=== PATIENT | female | born 1945 | race Caucasian/White ===

== ENCOUNTER 2020-10-07 07:03 | Day surgery (SDC) | payer OTHER, SELFPAY ==
--- NOTE | 2020-10-05 11:38 | HP_ITS ---
DATE OF SERVICE: 10/07/2020 PROPOSED DATE OF SERVICE: October 07. 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 She has a personal and family history of colon polyps and last underwent colonoscopy in October of 2013. At that time, she had a small tubular adenoma that was removed from the cecum. There was also a 6 mm hyperplastic polyp in the sigmoid. Small internal hemorrhoids were noted. She has no complaints. PAST MEDICAL HISTORY: Drug-induced hepatitis (erythromycin ethylsuccinate), uterine fibroid, mild depression, osteoporosis. PAST SURGICAL HISTORY: Includes dental surgery. FAMILY HISTORY: Her father had polyps. SOCIAL HISTORY: There is no current tobacco, alcohol, or substance abuse. MEDICATIONS: Her current medication list is updated in the short-stay medication update. ALLERGIES: PENICILLIN AND ERYTHROMYCIN ETHYLSUCCINATE. REVIEW OF SYSTEMS: SKIN: No pruritus. HEENT: Negative. CARDIOPULMONARY: No shortness of breath or chest pain. GASTROINTESTINAL: As above. GENITOURINARY: Negative. NEUROPSYCHIATRIC: Negative. PHYSICAL EXAMINATION: GENERAL: Shows a pleasant female, in no acute distress. VITAL SIGNS: Reviewed in the electronic medical record and are stable. SKIN: Anicteric. HEENT: Shows no scleral icterus. NECK: Without lymphadenopathy or thyromegaly. LUNGS: Clear. HEART: Regular rate and rhythm. S1, S2. No murmur. ABDOMEN: Soft without focal masses or tenderness. Bowel sounds are present. No organomegaly is noted. EXTREMITIES: Without edema. IMPRESSION: Colon cancer screening. PLAN: Colonoscopy. She understands risks and benefits and agrees to proceed. MD DENISE Mcghee/AL / [phone]
--- NOTE | 2020-10-06 09:40 | HO.ANESPROP2 ---
Documented by User: Svitlana Husain 10/06/20 09:42 HPI - Anesthesia Eval Consult details Narrative: 74yo F for Colonoscopy PMFSH Past Medical History Medical History Drug-induced hepatitis Mild depression Osteoarthritis Osteoporosis Systolic murmur Uterine fibroid Functional capacity: independent ambulation Family History Family History Father HTN (hypertension) Coronary artery disease Mother HTN (hypertension) Cardiomyopathy Smoker Depression Surgical History Surgical History H/O colonoscopy History of tooth extraction Hx of meniscectomy of right knee Social History Social History Alcohol intake: current Alcohol intake frequency: holidays/special occasions only Smoking Status: Never smoker Advance Directives: No Meds Allergies Allergy/AdvReac Type Severity Reaction Status Date / Time silvia Allergy Severe DIFF Unverified 10/06/20 16:46 BREATHING - TRACHEAL EDEMA penicillin G Allergy Unknown rash, hives Verified 10/06/20 16:46 penicillin V Allergy Unknown rash, hives Verified 10/06/20 16:46 Penicillins [PENICILLINS] Allergy Unknown HIVES Verified 10/06/20 16:46 erythromycin base AdvReac Unknown DRUG Verified 10/06/20 16:46 [ERYTHROMYCIN BASE] RELATED HEPATITIS Poison Keturah Scrub Allergy Unknown Unknown Uncoded 10/06/20 16:46 Poison [place] Wash Allergy Unknown Unknown Uncoded 10/06/20 16:46 Home Medications Medication Instructions Recorded Confirmed Type escitalopram oxalate [Lexapro] 10 mg PO DAILY 10/06/20 10/06/20 History ibuprofen 200 mg tablet 400 mg PO Q6H 10/06/20 10/06/20 History lorazepam 1 tab PO BEDTIME 10/06/20 10/06/20 History lorazepam 1 mg tablet 1 mg PO DAILY PRN 10/06/20 10/06/20 History Exam Exam Date and Time: October 06, 2020 0940 Assessment and Plan Assessment Anesthesia Assessment: Chart Reviewed Documented by User: Florina Boyer 10/07/20 07:47 [facility] Past Medical History Medical History Drug-induced hepatitis Mild depression Osteoarthritis Osteoporosis Systolic murmur Uterine fibroid Family History Family History Father HTN (hypertension) Coronary artery disease Mother HTN (hypertension) Cardiomyopathy Smoker Depression Family history of problems with anesthesia: No Surgical History Surgical History H/O colonoscopy History of tooth extraction Hx of meniscectomy of right knee History of Problems with Anesthesia: No Social History Social History Alcohol intake: current Alcohol intake frequency: holidays/special occasions only Smoking Status: Never smoker Advance Directives: No Meds Allergies Allergy/AdvReac Type Severity Reaction Status Date / Time silvia Allergy Severe DIFF Unverified 10/06/20 16:46 BREATHING - TRACHEAL EDEMA penicillin G Allergy Unknown rash, hives Verified 10/06/20 16:46 penicillin V Allergy Unknown rash, hives Verified 10/06/20 16:46 Penicillins [PENICILLINS] Allergy Unknown HIVES Verified 10/06/20 16:46 erythromycin base AdvReac Unknown DRUG Verified 10/06/20 16:46 [ERYTHROMYCIN BASE] RELATED HEPATITIS Poison [place]ur[place] Scrub Allergy Unknown Unknown Uncoded 10/06/20 16:46 Poison [place] Wash Allergy Unknown Unknown Uncoded 10/06/20 16:46 Home Medications Medication Instructions Recorded Confirmed Type escitalopram oxalate [Lexapro] 10 mg PO DAILY 10/06/20 10/06/20 History ibuprofen 200 mg tablet 400 mg PO Q6H 10/06/20 10/06/20 History lorazepam 1 tab PO BEDTIME 10/06/20 10/06/20 History lorazepam 1 mg tablet 1 mg PO DAILY PRN 10/06/20 10/06/20 History Exam Height,Weight and Vital Signs: Vital Signs Temp Pulse Resp BP Pulse Ox 10/07/20 07:15 96.6 F L 78 18 147/83 H 97 Airway Mallampati Class: II TM Dist: >3cm Neck ROM: Full Heart: RRR+ systolic murmur Lungs: CTAB Assessment and Plan Assessment Anesthesia Assessment: Anesthesia Plan Discussed and Chart Reviewed Final Anesthetic Review NPO: Yes ASA Class: II Final Preanesthetic Review: No Changes in Pt Med Stat, Meds/Allgs Chart Reviewed, Consent Obtained/Reviewed and Anes Risks/Benef Reviewed Patient Risk: Low Procedure Risk: Low Anesthetic Plan Anesthetic Plan: MAC:
[2020-10-07 07:15] VITALS: BP 147/83; PULSE 78; RESP 18; TEMP 35.9; O2SAT 97; BMI 29.2
[2020-10-07 07:32] VITALS: BMI 64.5
[2020-10-07] MEDS: Sodium Phosphate,Mono-Dibasic 133 ML ENEMA PR (07:45)
--- NOTE | 2020-10-07 07:45 | PC.NURSE ---
PER NIESHA MEANS AND ORTEGA IN PATIENT REGISTRATION OK TO ADD LAB ORDER FROM [facility] TO THIS VISIT. ORDER PUT IN BY THIS RN FOR CBC, LIPID PROFILE, TSH, AND CHEM PROFILE. LAB CALLED TO COME DRAW PATIENT AT BEDSIDE.
--- NOTE | 2020-10-07 07:59 | PC.NURSE ---
FLEETS GIVEN RESULTS;YELLOW LIQUID
[2020-10-07] MEDS: Lactated Ringers 1,000 ML 100 ML IVCONT (08:08)
--- NOTE | 2020-10-07 08:09 | MHC.SHP ---
Pre-Procedural Eval Section A The patient is an INPATIENT: No Changes since office visit: No Cold of Flu in the past 2 weeks, No New Medical Problems, No Changes in Medication and No Patient answered all questions The History & Physical has been completed within 30 days and I have reviewed it.: Yes Section B Chief Complaint: HX OF COLON POLYPS,SCREENING Details of Present Illness: screening Relevant Family History (Specify if Yes): Yes Relevant Social History: None Present Medications: see Short Stay Collaborative assessment Medical History: No relevant PMH History of Previous Operations: No relevant previous surgery Allergies: Allergies Allergy/AdvReac Type Severity Reaction Status Date / Time silvia Allergy Severe DIFF Unverified 10/06/20 16:46 BREATHING - TRACHEAL EDEMA penicillin G Allergy Unknown rash, hives Verified 10/06/20 16:46 penicillin V Allergy Unknown rash, hives Verified 10/06/20 16:46 Penicillins [PENICILLINS] Allergy Unknown HIVES Verified 10/06/20 16:46 erythromycin base AdvReac Unknown DRUG Verified 10/06/20 16:46 [ERYTHROMYCIN BASE] RELATED HEPATITIS Poison Keturah Scrub Allergy Unknown Unknown Uncoded 10/06/20 16:46 Poison [place] Wash Allergy Unknown Unknown Uncoded 10/06/20 16:46 Review of Systems Sugical H&P ROS: Negative: Constitution, Cardiovascular, Respiratory, Neurological, Psychiatric, Hem-Onc, Allergic/Immunologic, Gastrointestinal, Genitourinary, Musculoskeletal, Integumentary, Endocrine and Eyes/Ears/Nose/Throat Exam Surgical H&P Exam: Normal: HEENT, Normal: Heart, Normal: Lungs, Normal: Extremities, Normal: Abdomen, Normal: Skin and Normal: Neurological Plan Diagnosis/Plan: Unchanged Patient has been examined and remains a candidate for the planned procedure
[2020-10-07 08:11] LABS: MANUAL DIFF FLAG NO
[2020-10-07 08:18] LABS: Basophils Percent Auto 0.7 % (0-2); Eosinophils Absolute Auto 0.1 X10*3/uL (0.0-0.4); Eosinophils Percent Auto 1.8 % (0-4); Hematocrit 41.7 % (37-47); Hemoglobin 13.7 g/dl (12.0-16.0); Imm Gran Abs Auto 0.01 X10*3/uL (0.00-0.03); Imm Gran Pct Auto 0.2 % (0.0-0.4); Lymphocytes Absolute Auto 1.5 X10*3/uL (1.2-4.9); Lymphocytes Percent Auto 27.1 % (20-40); Mean Corpuscular HGB Conc 32.9 g/dl (31.0-35.0); Mean Corpuscular Hemoglobin 29.7 pg (27.0-33.0); Mean Corpuscular Volume 90.5 fL (80-98); Mean Platelet Volume 10.7 fL (9.4-12.3); Monocytes Absolute Auto 0.5 X10*3/uL (0.1-1.2); Monocytes Percent Auto 9.6 % (2-11); Neutrophils Absolute Auto 3.4 X10*3/uL (2.0-8.3); Neutrophils Percent Auto 60.6 % (45-73); Platelet Count 190 X10*3/uL (160-400); Red Blood Count 4.61 X10*6/uL (4.20-5.50); Red Cell Distribution Width 12.8 % (11.0-16.0); White Blood Count 5.6 X10*3/uL (4.8-10.8)
[2020-10-07 08:45] LABS: Alanine Aminotransferase 16 U/L (0-31); Albumin Level 3.8 g/dL (3.5-5.0); Alkaline Phosphatase 64 U/L (39-117); Anion Gap 11 (12-20); Aspartate Amino Transferase 20 U/L (5-31); Bilirubin Total 0.5 mg/dL (0.0-1.0); Blood Urea Nitrogen 7 mg/dL (9-16); Calcium 8.3 mg/dL (8.4-10.2); Carbon Dioxide 31 mmol/L (22-29); Chloride 105 mmol/L (96-108); Cholesterol 190 mg/dL; Creatinine Clr Calc Pharmacy 94.1; Estimated Glomerular Filt Rate > 60; Glucose Fasting 98 mg/dL (60-99); HDL Cholesterol 49 mg/dL; LDL Cholesterol Calculated 125 mg/dl; Potassium 3.6 mmol/l (3.3-5.1); Sodium 143 mmol/L (135-145); Total Protein 6.5 g/dL (6.5-8.0); Triglycerides 82 mg/dL
--- NOTE | 2020-10-07 08:53 | PM.OP ---
Brief Operative Note Date of procedure: 10/07/20 Post-op diagnosis: same (colon polyps) Procedure: colonosocpy Surgeon: Alfredo Cole Anesthesia: MAC Estimated blood loss (mL): 5 Pathology: other (polyps r colon, splenic flexure, desc, 30 cm) Condition: stable Disposition: PACU
[2020-10-07 08:56] VITALS: BP 122/64; PULSE 63; RESP 16; TEMP 36.3; O2SAT 98
[2020-10-07 09:06] LABS: Thyroid Stimulating Hormone 1.61 mIU/mL (0.32-4.0)
--- NOTE | 2020-10-07 09:10 | OP_ITS ---
SURGEON: Alfredo Cole MD INDICATIONS: Colon cancer screening and prior history of adenomatous colon polyps. PREOPERATIVE DIAGNOSIS: POSTOPERATIVE DIAGNOSIS: PROCEDURE PERFORMED: Colonoscopy to the terminal ileum with biopsy and snare polypectomy. ESTIMATED BLOOD LOSS: COMPLICATIONS: ANESTHESIA: ASSISTANTS: SPECIMENS: MEDICATIONS: Monitored anesthesia care. DESCRIPTION OF PROCEDURE: History and physical performed. The risks and benefits of the procedure were explained to the patient. Informed consent was obtained. The patient was placed in a left lateral decubitus position. A digital rectal exam was performed and was found to be normal. The Olympus pediatric video colonoscope was introduced into the rectum and advanced to the cecum without difficulty. The cecum was identified by transillumination, palpation, and identification of ileocecal valve. Examination was performed and the scope was removed. She tolerated the procedure well and was taken to recovery area in stable condition. FINDINGS: The terminal ileum was normal. The visualized colonic mucosa was normal. The quality of the prep was good. Multiple colonic polyps were present. Two in the right colon were removed with a snare and recovered via suction. One at the splenic flexure was also snared. The 3rd polyp at the descending colon and was removed with biopsy forceps and a polyp in the sigmoid at 30 cm was removed with a snare. All polyps measured less than 10 mm. No other polyps were identified. Retroflexed examination showed some small internal hemorrhoids and skin tags. IMPRESSION: Colon polyps. RECOMMENDATION: Follow up the biopsy results. MD DENISE Mcghee/AL / [id number]
[2020-10-07 09:11] VITALS: BP 132/107; PULSE 59; RESP 16; O2SAT 98
[2020-10-07 09:21] VITALS: BP 148/67; PULSE 56; RESP 16; TEMP 36.1; O2SAT 98
== END 2020-10-07 10:15 | disposition home or self-care (01) ==
PROVIDERS: Nurse Practitioner Family; PCP Internal Medicine; Visit Provider Internal Medicine Gastroenterology
PROC: 0DJD8ZZ Inspection of Lower Intestinal Tract, Via Natural or Artificial Opening Endoscopic (ICD-10-PCS; CPT 45378; principal; 2020-10-07 08:10)
DX: Z12.11 Encounter for screening for malignant neoplasm of colon (principal); Z86.010 Personal history of colon polyps; Z83.71 Family history of colonic polyps; D12.2 Benign neoplasm of ascending colon; D12.3 Benign neoplasm of transverse colon; D12.4 Benign neoplasm of descending colon; D12.5 Benign neoplasm of sigmoid colon; M81.0 Age-related osteoporosis without current pathological fracture; F32.9 Major depressive disorder, single episode, unspecified; Z79.899 Other long term (current) drug therapy; Z79.1 Long term (current) use of non-steroidal anti-inflammatories (NSAID); Z88.0 Allergy status to penicillin; Z88.1 Allergy status to other antibiotic agents
CPT/HCPCS: 45385; 45380; 36415; 80053; 80061; 84443; 85025; 88305; J2250

== ENCOUNTER → 2020-12-14 08:22 | Outpatient (REF) | payer OTHER, SELFPAY ==
--- NOTE | 2020-12-14 08:30 | CA_ITS ---
Transthoracic Echocardiogram Patient (Last, First, Middle): Chanelle Núñez, Gender: Female Date of : 1945 Age: 75 Procedure Date: 12/14/2020 Procedure Type: Transthoracic Echocardiogram Location: OP Height: 154.94 cm Weight: 70.76 kg BSA: 1.70 m2 Heart Rate: bpm BP: 146 / 67 mmHg Milieu Counselor: RIDDHI Referring MD: Carlos Lr [facility] Veterinary Poultry Inspector: Efraín Bianchi MD Symptoms: R01.1 - Cardiac murmur, unspecified Study Quality: Fair ECG Rhythm: Sinus Conclusions: - 1. Normal LV systolic function with grade 1 diastolic dysfunction 2. Mild fibrocalcific aortic valve changes 3. Normal cardiac valvular Doppler 4. Normal RV systolic pressure 5. No pericardial effusion Findings Left Ventricle Normal left ventricular size, thickness, and systolic function. The visually estimated ejection fraction is between 60-65%. Spectral Doppler is indicative of an impaired relaxation filling pattern. E/E prime ratio is <8, consistent with normal filling pressures. Evidence suggests grade I (mild) diastolic dysfunction. Right Ventricle Normal right ventricular cavity size and systolic function. Atria The left atrium is likely dilated. There is no evidence of interatrial shunt. The right atrium is normal in size. Aortic Valve There is mild calcification of the aortic valve. There is no aortic valve stenosis. There is no aortic valve regurgitation. Mitral Valve There is mild anterior mitral leaflet thickening. There is mild mitral annular calcification. There is trace mitral valve regurgitation. There is no mitral valve stenosis. Pulmonic Valve The pulmonic valve was not well visualized. Tricuspid Valve Normal tricuspid valve structure. There is mild tricuspid valve regurgitation. The right ventricular systolic pressure is normal. The right ventricular systolic pressure is 21 mmHg. Normal right atrial pressure. There is no evidence of pulmonary hypertension. Great Vessels All visible segments of the aorta are normal in size. The pulmonary artery was not well visualized. Venous The inferior vena cava is normal in size and collapses greater than 50% with inspiration. Pericardium/Pleural There is no evidence of pericardial effusion. Prior Study Comparison No prior study available for comparison. Measurements 2D Linear Measurements IVSd: 0.96 0.6-0.9/0.6-1.0 cm LVIDd: 4.73 3.9-5.3/4.2-5.9 cm LVIDd Index: 2.78 2.4-3.2/2.2-3.1 cm/m2 LVIDs: 3.06 2.0-3.6 cm LVPWd: 0.85 0.7-1.1 cm Ao Root: 3.10 2.1-3.5 cm LA Diam: 3.60 2.7-3.8/3.0-4.0 cm LAIDs Index: 2.12 1.5-2.3 cm/m2 LV Mass: 180.19 67-162/88-224 g LV Mass Index: 106.00 43-95/49-115 g/m2 LVOT Diam: 1.90 3.0+(-)1.3 cm 2D Systolic Function EF 4C: 68.00 >55% EF 2C: 40.40 >55% EF BiP: 58.70 >55% Mitral Valve MV Pk E: 0.68 MV PK A: 1.15 MV Decel Time: 201.00 E/A: 0.60 E'Lateral: 8.61 E'Medial: 5.61 E/E' Med: 12.20 E/E' Lat: 7.90 PHT: 59.00 MVA PHT: 3.73 Decel [place]: 3.41 Aortic Valve AoV Pk Jovan: 1.52 AoV Pk Grad: 9.00 LVOT LVOT Pk Jovan: 1.40 LVOT Mn Jovan: 0.99 LVOT VTI: 0.32 LVOT Pk Grad: 8.00 LVOT Mn Grad: 4.00 LVOT Diam: 1.90 LVOT Area: 2.84 Diastolic Function MV Pk E: 0.68 MV Pk A: 1.15 E/A: 0.60 E'Medial: 5.61 E/E' Med: 12.20 E' Laterial: 8.61 E/E' Lat: 7.90 Tricuspid Valve TR Pk Jovan: 2.12 TR Pk Grad: 18.00 RA Press: 3.00 RVSP: 21.00 Great Vessels Aorta Ao Root-2D: 3.10 2.0-3.7 cm Ao Asc: 3.60 2.1-3.4 cm Updated in Other Vendor System with Status of Final Efraín Bianchi MD electronically signed on 12/14/2020 3:53:03 PM with status of Final
== END ==
LOC: HO.CARD 08:22
PROVIDERS: Visit Provider Nurse Practitioner Family
DX: R01.1 Cardiac murmur, unspecified (principal)
CPT/HCPCS: 93306; Q9957

== ENCOUNTER 2021-07-10 10:37 | Outpatient (REF) | payer OTHER, SELFPAY ==
[2021-07-10 14:09] LABS: MANUAL DIFF FLAG NO
[2021-07-10 14:14] LABS: Basophils Percent Auto 0.5 % (0-2); Eosinophils Absolute Auto 0.1 X10*3/uL (0.0-0.4); Eosinophils Percent Auto 1.4 % (0-4); Glucose Urine UA NEG (NEG); Hematocrit 40.8 % (37-47); Hemoglobin 13.5 g/dl (12.0-16.0); Imm Gran Abs Auto 0.02 X10*3/uL (0.00-0.03); Imm Gran Pct Auto 0.3 % (0.0-0.4); Leukocyte Esterase Urine TRACE (NEG); Lymphocytes Absolute Auto 1.8 X10*3/uL (1.2-4.9); Lymphocytes Percent Auto 29.1 % (20-40); Mean Corpuscular HGB Conc 33.1 g/dl (31.0-35.0); Mean Corpuscular Volume 90.7 fL (80-98); Mean Platelet Volume 11.2 fL (9.4-12.3); Monocytes Absolute Auto 0.6 X10*3/uL (0.1-1.2); Monocytes Percent Auto 9.3 % (2-11); Neutrophils Absolute Auto 3.7 X10*3/uL (2.0-8.3); Neutrophils Percent Auto 59.4 % (45-73); Nitrite Urine NEG (NEG); Platelet Count 210 X10*3/uL (160-400); Red Cell Distribution Width 12.9 % (11.0-16.0); Specific Gravity - Urine <= 1.005 (1.005-1.025); UACC Culture Trigger YES; Urine Blood NEG (NEG); Urine Ketones NEG (NEG); Urine Protein NEG (NEG-TRACE); White Blood Count 6.2 X10*3/uL (4.8-10.8)
[2021-07-10 14:17] LABS: Appearance Urine HAZY; Color Urine YELLOW
[2021-07-10 14:25] LABS: RBC Urine 0-2 /HPF (0); Squamous Epithelial Cell Urine 1+ /LPF; WBC Urine 0-2 /HPF (0-4)
[2021-07-10 14:37] LABS: Alanine Aminotransferase 16 U/L (0-31); Alkaline Phosphatase 62 U/L (39-117); Anion Gap 13 (12-20); Aspartate Amino Transferase 18 U/L (5-31); Bilirubin Total 0.3 mg/dL (0.0-1.0); Blood Urea Nitrogen 11 mg/dL (9-16); Calcium 8.8 mg/dL (8.4-10.2); Carbon Dioxide 27 mmol/L (22-29); Chloride 104 mmol/L (96-108); Cholesterol 177 mg/dL; Estimated Glomerular Filt Rate > 60; Glucose Fasting 100 mg/dL (60-99); HDL Cholesterol 52 mg/dL; Iron 111 mcg/dL (30-160); LDL Cholesterol Calculated 110 mg/dl; Percent Iron Saturation 38 % (15-50); Potassium 3.8 mmol/L (3.3-5.1); Sodium 140 mmol/L (135-145); Total Iron Binding Capacity 289 mcg/dL (228-428); Total Protein 6.5 g/dL (6.5-8.0); Triglycerides 78 mg/dL; Unsaturated Iron Binding 178 ug/dL
[2021-07-10 14:58] LABS: Ferritin 164 ng/mL (10-250); TSH reflex Free T4 0.77 uIU/mL (0.32-4.0); Vitamin D 25-OH Total 32.3 ng/mL (>30)
[2021-07-10 16:25] LABS: Folate > 20.0 ng/mL (> or = 4.0); Vitamin B12 615 pg/mL (200-900)
== END 2021-07-10 10:38 | disposition home or self-care (01) ==
LOC: HO.HMGCLDS 10:37
PROVIDERS: PCP Nurse Practitioner Family; Visit Provider Nurse Practitioner Family
DX: Z00.00 Encounter for general adult medical examination without abnormal findings (principal); M81.0 Age-related osteoporosis without current pathological fracture; R53.83 Other fatigue
CPT/HCPCS: 36415; 80053; 80061; 81001; 82306; 82607; 82728; 82746; 83540; 84443; 85025; 87086

== ENCOUNTER 2021-07-19 10:26 | Outpatient (REF) | payer OTHER, MEDICARE, SELFPAY ==
--- NOTE | 2021-07-19 11:09 | MHC.AU.ANR ---
Adult Audiological Evaluation Date of Visit: 07/19/21 Reason for Appointment: Audiological re-evaluation to monitor the status of Wilton's hearing loss. She was previously diagnosed with a mild to moderate sensorineural hearing loss and was considered a borderline candidate for amplification. She notes a decrease in her hearing ability when in the presence of background noise and when the speaker is at a distance or in another room. She feels she hears well at work and when speaking with someone face to face. Change in medical history includes hypertension and transitioning mental health medications. Does patient feel they have a hearing loss?: Yes If Yes, Which Ear?: Both Ears Has hearing been tested previously?: Yes Previous Hearing Test [place] [facility] Mild to moderate sensorineural hearing loss bilaterally. Medical History: Medical History: High Blood Pressure Allergies: [place], penicillin, erythromycin, poison inessa scrub/wash Medication List: Amlodipine, Lexapro, Ativan Otoscopy: Right Ear: Unremarkable Left Ear: Unremarkable Tympanometry: Tympanometry performed due to: To assess integrity of the middle ear system Right Ear: Normal Middle Ear System (Type A) Left Ear: Normal Middle Ear System (Type A) Hearing Evaluation: Transducer(s) Used: Insert Earphones, Bone Conduction Method: Conventional Audiometry Stimuli Used: Pure Tones Right Ear: Description of Hearing: Mild to moderate sensorineural hearing loss from 250-8000 Hz. Hearing is 10 dBHL worse than the left at 1000 Hz and 20 dBHL worse than the left at 2000 Hz. Left Ear: Description of Hearing: Mild to moderate sensorineural hearing loss from 250-8000 Hz. Speech Recognition Threshold (SRT): Method Used: Monitored Live Voice Stimuli Used: Spondee Words Right Ear: 35 dBHL Left Ear: 25 dBHL Word Discrimination: Method: Recorded Lists Word Lists Used: NU-6 Right Ear: 96% at 75 dBHL Left Ear: 96% at 65 dBHL Comparison: Compared to the most recent evaluation: 15 dBHL decrease in hearing in the right ear at 2000 Hz. All other thresholds remain stable bilaterally. Recommendations: Discussed hearing aid candidacy. Recommended trial with hearing aids if Dr. Núñez finds that her hearing loss is causing significant communication difficulties. Dr. úNñez will consider hearing aids and she was welcomed to return to further discuss hearing aid options and technology. Recommend a hearing re-evaluation in one year to monitor the status of her hearing loss. Diagnosis: Primary Diagnosis: H90.3 Bilateral Sensorineural Hearing Loss Services Performed: Services Performed: Comprehensive Audiological Evaluation (CPT 55041) Tympanometry (CPT 44987) Signature: Provider: Alec Peñaloza, CCC-A
== END 2021-07-19 10:27 | disposition home or self-care (01) ==
LOC: HO.SH 10:26
PROVIDERS: Visit Provider Nurse Practitioner Family
DX: H90.3 Sensorineural hearing loss, bilateral (principal)
CPT/HCPCS: 92557; 92567

== ENCOUNTER 2021-08-14 10:30 | Outpatient (REF) | payer SELFPAY ==
--- NOTE | 2021-08-14 13:16 | MHC.AU.HAS ---
Hearing Aid Evaluation Date of Visit: 08/14/21 Historical Information: Description of Hearing: Mild to moderate sensorineural hearing loss bilaterally, right ear hearing worse than left. Current personal amplification information, if applicable: None Summary: Dr. Aguillonris was seen today to discuss hearing aids. She notes that she primarily has noticed difficulty hearing aid home, which has caused conflict with her family. She is interested in trying a pair of hearing aids. Discussed hearing aid styles and technologies today. Interested in rechargeable MARILYNN aids. She is interested in entry level java developer technology as she will be retiring and isn't in background noise too often. Hearing Aid Prescription: Based on the individual?s shared listening needs, communication environments, dexterity, desire for connectivity, and personal preferences, the following prescription for amplification has been made: Right ear: Manager Audit: Phonak Model: Audeo P50-R Battery Size: Rechargeable Color: P1 - Sand beige Trouble Locater: Size 1 M Type of Dome: Open Left ear: Left ear prescription to be same as Right Hearing Aid above: Manager Audit: Phonak Model: Audeo P50-R Battery Size: Rechargeable Color: P1 - Sand beige Trouble Locater: Size 1 M Type of Dome: Open Plan of Care: Patient wishes to purchase hearing aids as prescribed Action Taken/Action Needed: Medical Clearance to be requested from PCP/ENT. Hearing Instrument Fitting to be scheduled when materials arrive. Hearing aids ordered today. Paid $350 deposit. Primary Diagnosis: H90.3 Bilateral Sensorineural Hearing Loss Signature: Provider: Judson Peñaloza, CCC-A
--- NOTE | 2021-08-14 13:17 | MHC.AU.MED ---
Medical Clearance for Hearing Instrumentation Date: 08/14/21 Patient Name: Chanelle Núñez Date of : 1945 Referring Provider: Carlos Lr PATROL LADYKaren We have seen your patient on 08/14/21 and have determined that they are a candidate for amplification (See accompanying report). Specifically, they would benefit from: Hearing aid use in both ears There is a statute that addresses Medical Evaluation Requirements prior to fitting a patient with a hearing aid. According to [place] statute 265 CMR:6.03(1), (a) General. Except as provided in 265 CMR 6.03(1)(b), a aircraft avionics technician shall not sell a hearing aid unless the prospective user has presented to the aircraft avionics technician a written statement signed by a licensed physician that states that the patient's hearing loss has been medically evaluated and the patient may be considered a candidate for a hearing aid. The medical evaluation must have taken place within the preceding six months. Please note: Due to the [place] Statute referenced above, we cannot accept a signature other than that of a licensed physician. CUSTOMER EXPERIENCE INTERN and PA signatures cannot be accepted. I am in agreement with the above recommendation. There is no medical contraindication for hearing instrumentation. Physician Signature Date Physician Name (Printed)
== END 2021-08-14 10:31 | disposition home or self-care (01) ==
LOC: HO.HAP 10:30
PROVIDERS: Visit Provider Nurse Practitioner Family
DX: Z46.1 Encounter for fitting and adjustment of hearing aid (principal); H90.3 Sensorineural hearing loss, bilateral
CPT/HCPCS: 92591

== ENCOUNTER 2021-08-22 08:34 | Outpatient (REF) | payer SELFPAY | END 2021-08-22 08:35 | disposition home or self-care (01) | LOC: HO.HAP 08:34 | PROVIDERS: Visit Provider Nurse Practitioner Family | DX: Z46.1 Encounter for fitting and adjustment of hearing aid (principal); H90.3 Sensorineural hearing loss, bilateral | CPT/HCPCS: V5261; V5266 ==

== ENCOUNTER 2021-09-08 09:04 | Outpatient (REF) | payer SELFPAY | END 2021-09-08 09:05 | disposition home or self-care (01) | LOC: HO.HAP 09:04 | PROVIDERS: Visit Provider Nurse Practitioner Family | DX: Z13.89 Encounter for screening for other disorder (principal) ==

== ENCOUNTER 2021-09-15 12:37 | Outpatient (REF) | payer MEDICARE, SELFPAY ==
--- NOTE | ~2021-09-15 | MM_ITS ---
EXAMINATION: MM SCREENING DIGITAL BREAST TOMOSYNTHESIS, BILATERAL CLINICAL INFORMATION: Screening. Asymptomatic. The lifetime risk of breast cancer based on the Tyrer-Cuzick Model is 4%. COMPARISON: Mammography: 12/03/2018, 06/22/2013 TECHNIQUE: Digital breast tomosynthesis is performed in both the craniocaudal and mediolateral oblique views along with computer-aided detection (CAD). Synthesized 2D images are generated from the tomosynthesis. FINDINGS: There are scattered areas of fibroglandular density (ACR BI-RADS breast composition Category b). There is no interval mass or architectural abnormality. Background stromal markings are stable. No abnormal calcifications. The axilla are unremarkable. No significant changes from prior studies. MM/MM tomosynthesis screening BI IMPRESSION: No mammographic evidence of malignancy. ASSESSMENT: BI-RADS 1: Negative RECOMMENDATION: Routine annual mammography screening. This patient's information was entered into a reminder system with a target due date for their next mammogram.
--- NOTE | ~2021-09-15 | MM_ITS ---
EXAMINATION: BONE DENSITOMETRY CLINICAL INDICATION: Age-related osteoporosis without current pathological fracture. COMPARISON: Previous BD dated 07/16/2019 and baseline BD dated 09/13/2011. TECHNIQUE: Using a [employer] DXA System (software version: 13.1) manufactured by [employer], dual-energy x-ray absorptiometry was performed of the lumbar spine and left hip. The images are of good technical quality. Summary results are attached. FINDINGS: AP SPINE L1-L4: Current: BMD 0.906 g/cm2, Z-score -0.6, T-score -2.3, osteopenia, 0.0% no change from previous, 8.9% increase from baseline (<5% change is not significant). Prior: BMD 0.906 g/cm2. Baseline: BMD 0.832 g/cm2. LEFT FEMUR, NECK: Current: BMD 0.630 g/cm2, Z-score -1.1, T-score -2.9, osteoporosis. Prior: BMD 0.641 g/cm2. Baseline: BMD 0.723 g/cm2. LEFT FEMUR, TOTAL: Current: BMD 0.670 g/cm2, Z-score -1.0, T-score -2.7, osteoporosis, 3.5% decrease from previous, 10.5% decrease from baseline (<5% change is not significant). Prior: BMD 0.694 g/cm2. Baseline: BMD 0.749 g/cm2. IDENTIFIED RISK FACTORS: Osteoporosis, height loss, low calcium intake, family history (parental hip fracture), history of fracture (adult), menopause. HISTORY OF FRACTURE: Rib, toes. MEDICATIONS: Vitamin D. MM/XR DEXA axial skeleton IMPRESSION: 1. DIAGNOSIS: Osteoporosis based on the lowest T-score value of -2.9 in the femoral neck applying World Health Organization criteria. 2. 10-YEAR FRACTURE RISK PREDICTION, FRAX: Major osteoporotic fracture (clinical spine, forearm, hip or shoulder) 51.6%. Hip fracture 37.8%. 3. Treatment Recommendations: NOF guidelines recommend consideration for treatment in postmenopausal women and men age 50 and older presenting with the following: -A hip or vertebral (clinical or morphometric) fracture. -T-score less than or equal to -2.5 at the femoral neck or spine after appropriate evaluation to exclude secondary causes. -Low bone mass at the hip or spine and a 10-year fracture probability by FRAX of greater than or equal to 3% for hip fracture or greater than or equal to 20% for major osteoporotic fracture based on the [place] adapted WHO algorithm. 4. Other Recommendations: All treatment decisions require clinical judgment and consideration of individual patient factors, including patient preferences, comorbidities, previous drug use, risk factors not captured in the FRAX model (e.g. frailty, falls, vitamin D deficiency, increased bone turnover, interval significant decline in bone density) and possible under or overestimation of fracture risk by FRAX. Additional medical evaluation for secondary cause of low bone mineral density may be appropriate. FUTURE SCAN RECOMMENDATION: People with diagnosed cases of osteoporosis or at high risk for fracture should have regular bone mineral density tests. For patients eligible for Medicare, routine testing is allowed once every 2 years. The testing frequency can be increased to one year for patients who have rapidly progressing disease, those who are receiving or discontinuing medical therapy to restore bone mass, or have additional risk factors.
== END 2021-09-15 12:38 | disposition home or self-care (01) ==
LOC: HO.MAMMO 12:37
PROVIDERS: Visit Provider Nurse Practitioner Family
DX: Z12.31 Encounter for screening mammogram for malignant neoplasm of breast (principal); M81.0 Age-related osteoporosis without current pathological fracture; E83.51 Hypocalcemia; Z78.0 Asymptomatic menopausal state
CPT/HCPCS: 77063; 77067; 77080

== ENCOUNTER 2022-10-08 09:34 | Outpatient (REF) | payer MEDICARE, SELFPAY | END 2022-10-08 09:35 | disposition home or self-care (01) | LOC: HO.SH 09:34 | PROVIDERS: Visit Provider Nurse Practitioner Family | DX: Z01.118 Encounter for examination of ears and hearing with other abnormal findings (principal); H90.3 Sensorineural hearing loss, bilateral | CPT/HCPCS: 92557; 92567 ==

== ENCOUNTER 2022-11-05 07:12 | Outpatient (REF) | payer MEDICARE, SELFPAY ==
[2022-11-05 11:20] LABS: MANUAL DIFF FLAG NO
[2022-11-05 11:39] LABS: Basophils Percent Auto 0.8 % (0-2); Eosinophils Absolute Auto 0.1 X10*3/uL (0.0-0.4); Eosinophils Percent Auto 1.9 % (0-4); Hematocrit 42.3 % (37.0-47.0); Imm Gran Abs Auto 0.01 X10*3/uL (0.00-0.03); Imm Gran Pct Auto 0.2 % (0.0-0.4); Lymphocytes Absolute Auto 1.5 X10*3/uL (1.2-4.9); Lymphocytes Percent Auto 28.8 % (20-40); Mean Corpuscular HGB Conc 33.1 g/dl (31.0-35.0); Mean Corpuscular Hemoglobin 29.9 pg (27.0-33.0); Mean Corpuscular Volume 90.2 fL (80.0-98.0); Mean Platelet Volume 11.4 fL (9.4-12.3); Monocytes Absolute Auto 0.5 X10*3/uL (0.1-1.2); Monocytes Percent Auto 10.2 % (2-11); Neutrophils Absolute Auto 3.1 x10*3/uL (2.0-8.3); Neutrophils Percent Auto 58.1 % (45-73); Platelet Count 209 X10*3/uL (160-400); Red Blood Count 4.69 X10*6/uL (4.20-5.50); Red Cell Distribution Width 13.1 % (11.0-16.0); White Blood Count 5.3 X10*3/uL (4.8-10.8)
[2022-11-05 12:08] LABS: Alanine Aminotransferase 19 U/L (0-31); Alkaline Phosphatase 54 U/L (39-117); Anion Gap 11 (12-20); Aspartate Amino Transferase 19 U/L (5-31); Bilirubin Total 0.7 mg/dL (0.0-1.0); Blood Urea Nitrogen 15 mg/dL (9-16); Calcium 9.2 mg/dL (8.4-10.2); Carbon Dioxide 28 mmol/L (22-29); Chloride 108 mmol/L (96-108); Cholesterol 196 mg/dL; Estimated Glomerular Filt Rate > 60; Glucose Fasting 106 mg/dL (60-99); HDL Cholesterol 55 mg/dL; LDL Cholesterol Calculated 127 mg/dl; Potassium 4.1 mmol/L (3.3-5.1); Sodium 143 mmol/L (135-145); TSH reflex Free T4 1.22 uIU/mL (0.32-4.0); Total Protein 6.7 g/dL (6.5-8.0); Triglycerides 74 mg/dL
== END 2022-11-05 07:13 | disposition home or self-care (01) ==
LOC: HO.HMGCLDS 07:12
PROVIDERS: PCP Nurse Practitioner Family; Visit Provider Nurse Practitioner Family
DX: F41.9 Anxiety disorder, unspecified (principal); F33.9 Major depressive disorder, recurrent, unspecified
CPT/HCPCS: 36415; 80053; 80061; 84443; 85025

== ENCOUNTER 2023-02-21 12:58 | Outpatient (REF) | payer MEDICARE, SELFPAY ==
--- NOTE | ~2023-02-21 | MM_ITS ---
EXAMINATION: MM SCREENING DIGITAL BREAST TOMOSYNTHESIS, BILATERAL CLINICAL INFORMATION: Screening. Asymptomatic. The lifetime risk of breast cancer based on the Tyrer-Cuzick Model is 3%. COMPARISON: Mammography: September 15, 2021 and studies dating back to June 22, 2013 TECHNIQUE: Digital breast tomosynthesis is performed in both the craniocaudal and mediolateral oblique views along with computer-aided detection (CAD). Synthesized 2D images are generated from the tomosynthesis. FINDINGS: The breasts are almost entirely fatty (ACR BI-RADS breast composition Category a). There are no significant masses, abnormal calcifications, or other abnormalities. MM/MM tomosynthesis screening BI IMPRESSION: No significant changes from prior exam. ASSESSMENT: BI-RADS 1: Negative RECOMMENDATION: Routine annual mammography screening. This patient's information was entered into a reminder system with a target due date for their next mammogram.
== END 2023-02-21 12:59 | disposition home or self-care (01) ==
LOC: HO.MAMMO 12:58
PROVIDERS: PCP Nurse Practitioner Family; Visit Provider Nurse Practitioner Family
DX: Z12.31 Encounter for screening mammogram for malignant neoplasm of breast (principal)
CPT/HCPCS: 77063; 77067

== ENCOUNTER 2023-10-30 16:18 | Outpatient (AMB) | payer MEDICARE, SELFPAY ==
--- NOTE | 2023-10-30 16:36 | A.OFFPC_ITS ---
Vital Signs 10/30/23 16:44 Weight 152 lb BP 110/72 Blood Pressure Location Lt brachial Position Sitting Pulse 59 Pulse Source Pulse Oximeter Pulse Oximetry (%) 97 Oxygen Delivery Method Room Air Intake Visit Reasons: Anxiety and depression f/u Intake Note: Patient here for anxiety and depression follow up. Allergies silvia Allergy (Severe, Verified 10/30/23 16:44) DIFF BREATHING - TRACHEAL EDEMA penicillin G Allergy (Unknown, Verified 10/30/23 16:44) rash, hives penicillin V Allergy (Unknown, Verified 10/30/23 16:44) rash, hives Penicillins [PENICILLINS] Allergy (Unknown, Verified 10/30/23 16:44) HIVES bupropion [From Wellbutrin] Adverse Reaction (Intermediate, Verified 10/30/23 17:13) Anxiety erythromycin base [ERYTHROMYCIN BASE] Adverse Reaction (Unknown, Verified 10/30/23 16:44) DRUG RELATED HEPATITIS Poison Ket[place] Scrub Allergy (Unknown, Uncoded 10/30/23 16:44) Unknown Poison [place] Wash Allergy (Unknown, Uncoded 10/30/23 16:44) Unknown Medication List - Last Reconciled 10/30/23 by WALTER Lopez fluoxetine 60 mg PO DAILY ibuprofen (Advil) 400 mg PO Q6H lorazepam 1 mg PO DAILY PRN 90 days metoprolol succinate ER 25 mg PO DAILY triamcinolone acetonide 0.1% 1 appl topical BID 90 days valacyclovir (Valtrex) 500 mg PO BID PRN 30 days Tobacco use date assessed: 06/05/23 Fall risk assessment: No Falls in past year Last assessed Fall Risk: 10/30/23 HPI Anxiety and depression f/u HPI Details htn: stable at home, 120s/70s. Denies any CP, SOB, dizziness, or GRANADO. Pt would like to see podiatry, to assess nails, toenail fungus, and callus formation. anxiety and depression: pt has been working with a psychiatrist, wellbutrin was tried, had an adverse effect. Pt reports doing well. She does report more intermittent anxiety. She reports fighting with her partner less. SHe denies any SI or HI, and doers not want a therapist currently. [facility] Medical History Drug-induced hepatitis Major depression, recurrent Mild depression Osteoarthritis Osteoporosis Systolic murmur Uterine fibroid Surgical History H/O colonoscopy History of tooth extraction Hx of meniscectomy of right knee Family History Father HTN (hypertension) Coronary artery disease Mother HTN (hypertension) Cardiomyopathy Smoker Depression Other Mental health disorder Social History Housing: House Alcohol intake: current Alcohol intake frequency: holidays/special occasions only Patient Tobacco Use Status: Never used Tobacco e-Cigarette/Vaping Use: Never Used Second Hand Smoke Exposure: Yes (as a child) Current occupational status: other Current occupation: [employer] Cognitive needs: No Hearing needs: No Vision needs: No Questionnaire Thrive Questionnaire Date Thrive assessed: 03/01/22 AMBER-7 AMB Questionnaire AMBER-7 Date AMBER - 7 assessed: 03/01/22 Source: Developed by Drs. Unruly An, Shannon Merino, Mike Rodriguez and colleagues, with an educational natalia from [employer]. Physical exam (Primary Care) Vital Signs: Last Vital Signs Pulse 59 10/30/23 16:44 BP 110/72 10/30/23 16:44 Pulse Ox 97 10/30/23 16:44 Oxygen Delivery Method Room Air 10/30/23 16:44 Tobacco/Smoking Status: Tobacco use Status Tobacco use date assessed 06/05/23 10/30/23 16:36 Patient Tobacco Use Status Never used Tobacco 10/30/23 16:36 e-Cigarette/Vaping Use Never Used 10/30/23 16:36 Thrive Assessment: Date of Thrive Assessment Date Thrive assessed 03/01/22 10/30/23 16:36 Const General: cooperative Resp Effort & Inspection: normal respiratory effort Auscultation: clear to auscultation bilaterally Cardio Rate: regular rate Rhythm: regular rhythm Heart sounds: S1 normal heart sound present, S2 normal heart sound present and Murmur heart sound present (systolic murmur) Skin Other: left facial cheek with small raised rough lesion, skin colored Extrem Other: bilat feet with bunions, large callus formation bilat, distal third toe with flaky callous formation. Right lower extremity: no edema Left lower extremity: no edema Psych Appearance: grossly normal and well kempt Mental Status: mental status grossly normal Speech and movement: Normal speech and movement present Affect: normal affect Thought process: Normal thought process present Thought content: Normal thought content present Insight: Good insight present (Psych) Judgement: Good judgement present (Psych) Assessment and Plan Assessment & Plan (1) Skin lesion: Code(s): L98.9 - Disorder of the skin and subcutaneous tissue, unspecified (2) Bunion: Code(s): M21.619 - Bunion of unspecified foot (3) Callus: Code(s): L84 - Corns and callosities (4) Onychomycosis: Code(s): B35.1 - Tinea unguium (5) HTN (hypertension): Code(s): I10 - Essential (primary) hypertension (6) Screening for colon cancer: Code(s): Z12.11 - Encounter for screening for malignant neoplasm of colon (7) Vitamin D deficiency: Code(s): E55.9 - Vitamin D deficiency, unspecified (8) Anxiety: Code(s): F41.9 - Anxiety disorder, unspecified (9) Major depression, recurrent: Code(s): F33.9 - Major depressive disorder, recurrent, unspecified Orders: Orders Complete Blood Count Auto Diff Today I10 - Essential (primary) hypertension Comprehensive [place]. Panel Fast Today I10 - Essential (primary) hypertension TSH reflex Free T4 Today I10 - Essential (primary) hypertension UA CC w/rflx Micro + Cult Today I10 - Essential (primary) hypertension Lipid Panel Today I10 - Essential (primary) hypertension Vitamin D 25-OH Total Today E55.9 - Vitamin D deficiency, unspecified Referrals Dermatology Referral L98.9 - Disorder of the skin and subcutaneous tissue, unspecified Gastroenterology Referral Z12.11 - Encounter for screening for malignant neoplasm of colon Podiatry Referral B35.1 - Tinea unguium, L84 - Corns and callosities, M21.619 - Bunion of unspecified foot Coding Level of Care Code Est Pt Level 3 (65609) Diagnoses Skin lesion L98.9 Bunion M21.619 Callus L84 Onychomycosis B35.1 HTN (hypertension) I10 Screening for colon cancer Z12.11 Vitamin D deficiency E55.9 Anxiety F41.9 Major depression, recurrent F33.9
[2023-10-30 16:44] VITALS: BP 110/72; PULSE 59; O2SAT 97
== END 2023-10-30 18:10 | disposition home or self-care (01) ==
PROVIDERS: PCP Nurse Practitioner Family; Visit Provider Nurse Practitioner Family
DX: I10 Essential (primary) hypertension (principal); B35.1 Tinea unguium; F33.9 Major depressive disorder, recurrent, unspecified; F41.9 Anxiety disorder, unspecified; L98.9 Disorder of the skin and subcutaneous tissue, unspecified; M21.611 Bunion of right foot; L84 Corns and callosities; Z12.11 Encounter for screening for malignant neoplasm of colon; E55.9 Vitamin D deficiency, unspecified; M21.612 Bunion of left foot
CPT/HCPCS: 99213

== ENCOUNTER 2023-12-24 07:16 | Day surgery (SDC) | payer MEDICARE, SELFPAY ==
[2023-12-20 13:41] VITALS: BMI 27.8
--- NOTE | 2023-12-23 14:05 | HP_ITS ---
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 She has a personal history of colon polyps and last underwent colonoscopy in October 2020 with removal of multiple tubular adenomas. Since that time, she has done well with no complaints of lower GI symptoms. PAST MEDICAL HISTORY: 1. Colon polyps as above. 2. Hearing loss. 3. Anxiety/depression. 4. Hypertension. 5. Osteoporosis. 6. Vitamin D deficiency. CURRENT MEDICATIONS: See attached. These are reviewed with the patient. ALLERGIES: THERE ARE MULTIPLE MEDICATION ALLERGIES THAT ARE REVIEWED. FAMILY HISTORY: This is reviewed with the patient, is positive for colon polyps. SOCIAL HISTORY: There is no current tobacco, alcohol, or substance abuse. REVIEW OF SYSTEMS: SKIN: No pruritus. HEENT: Negative. CARDIOPULMONARY: No shortness of breath or chest pain. GASTROINTESTINAL: As above. GENITOURINARY: Negative. NEUROPSYCHIATRIC: Negative. PHYSICAL EXAMINATION: Reveals a pleasant female. Lungs are clear Heart is normal Abdomen is normal IMPRESSION: Colon cancer screening. PLAN: Colonoscopy. Risks and benefits of the procedure have been discussed with Dr. Núñze. She understands these and agrees to proceed. MD DENISE Mcghee/AL / [id number] MTDShabana
[2023-12-24 07:20] VITALS: BMI 27.8
--- NOTE | 2023-12-24 07:47 | HO.ANESPROP2 ---
HPI - Anesthesia Eval Consult details Narrative: 78yo female patient for Colonoscopy PMFSH Active Problems Active Problems: All Active Problems (Updated 12/24/23 @ 07:49 by Florina Boyer MD) Vitamin D deficiency (Acute) Screening for colon cancer (Acute) Onychomycosis (Acute) Callus (Acute) Bunion (Acute) Forgetfulness (Acute) De Quervain's disease (tenosynovitis) (Acute) Right shoulder pain (Acute) Screening for breast cancer (Acute) Loss of hearing (Acute) Fatigue (Acute) HTN (hypertension) (Acute) Anxiety and depression (Acute) Skin lesion (Acute) Physical exam (Acute)q Major depression, recurrent (Acute) Systolic murmur (Acute) Osteoporosis (Acute) Past Medical History Medical History Hearing loss Anxiety HTN (hypertension) Major depression, recurrent Systolic murmur Osteoporosis Osteoarthritis Mild depression Uterine fibroid Drug-induced hepatitis Family History Family History Father HTN (hypertension) Coronary artery disease Mother HTN (hypertension) Cardiomyopathy Smoker Depression Other Mental health disorder Family history of problems with anesthesia: No Surgical History Surgical History History of tooth extraction H/O colonoscopy Hx of meniscectomy of right knee History of Problems with Anesthesia: No Social History Social History Housing: House Alcohol intake: current Alcohol intake frequency: holidays/special occasions only Patient Tobacco Use Status: Never used Tobacco e-Cigarette/Vaping Use: Never Used Second Hand Smoke Exposure: Yes (as a child) Current occupational status: other Current occupation: [employer] Cognitive needs: No Hearing needs: No Vision needs: No Meds Allergies Allergy/AdvReac Type Severity Reaction Status Date / Time silvia Allergy Severe DIFF Verified 12/24/23 07:27 BREATHING - TRACHEAL EDEMA Penicillins [PENICILLINS] Allergy Intermediate hives/rash Verified 12/24/23 07:27 bupropion [From Wellbutrin] AdvReac Intermediate Anxiety Verified 12/24/23 07:27 erythromycin base AdvReac Intermediate DRUG Verified 12/24/23 07:27 [ERYTHROMYCIN BASE] RELATED HEPATITIS Poison [place] Wash Allergy Unknown Unknown Uncoded 12/24/23 07:27 Home Medications Medication Instructions Recorded Confirmed Last Taken Type ibuprofen 200 mg tablet (Advil) 400 mg PO Q6H 10/06/20 12/20/23 Unknown History duloxetine 30 mg capsule,delayed 60 mg PO 12/24/23 Unknown History release (Cymbalta) Exam Height,Weight and Vital Signs: Height 5 ft 2 in Weight 68.946 kg Vital Signs Temp Pulse Resp BP Pulse Ox O2 Del Method 98.7 F 66 16 136/64 97 Room Air 12/24/23 07:48 12/24/23 07:48 12/24/23 07:48 12/24/23 07:48 12/24/23 07:48 12/24/23 07:48 Airway Mallampati Class: II TM Dist: >3cm Neck ROM: Full Loose/Missing/Broken Teeth: No (Dental implants intact. Denies broken, loose, missing teeth) Heart: RRR Lungs: CTAB Assessment and Plan Assessment Anesthesia Assessment: Anesthesia Plan Discussed and Chart Reviewed Final Anesthetic Review Family History of Problems with Anesthesia: No History of Problems with Anesthesia: No NPO: Yes ASA Class: II Final Preanesthetic Review: No Changes in Pt Med Stat, Meds/Allgs Chart Reviewed, Consent Obtained/Reviewed and Anes Risks/Benef Reviewed Patient Risk: Low Procedure Risk: Low Assessment/Block/Sedation in SS: Assess/Block/Sedation-SS Anesthetic Plan Anesthetic Plan: TIVA Disposition: Standard PACU
[2023-12-24 07:48] VITALS: BP 136/64; PULSE 66; RESP 16; TEMP 37.1; O2SAT 97
[2023-12-24] MEDS: Lactated Ringers 1,000 ML 80 ML IVCONT (08:10)
--- NOTE | 2023-12-24 08:15 | MHC.SHP ---
Pre-Procedural Eval Section A Date of Service: 12/24/23 The patient is an INPATIENT: No Changes since office visit: No Cold of Flu in the past 2 weeks, No New Medical Problems, No Changes in Medication and No Patient answered all questions The History & Physical has been completed within 30 days and I have reviewed it.: Yes Section B Chief Complaint: screening Allergies: Allergies Allergy/AdvReac Type Severity Reaction Status Date / Time silvia Allergy Severe DIFF Verified 12/24/23 07:27 BREATHING - TRACHEAL EDEMA Penicillins [PENICILLINS] Allergy Intermediate hives/rash Verified 12/24/23 07:27 bupropion [From Wellbutrin] AdvReac Intermediate Anxiety Verified 12/24/23 07:27 erythromycin base AdvReac Intermediate DRUG Verified 12/24/23 07:27 [ERYTHROMYCIN BASE] RELATED HEPATITIS Poison [place] Wash Allergy Unknown Unknown Uncoded 12/24/23 07:27 Plan I have reviewed the history and physical and performed a pertinent physical examination on my patient. No changes have occurred unless specified. Time Spent With Patient Time: Total time managing care of this patient today ____ minutes.
[2023-12-24 08:58] VITALS: BP 108/55; PULSE 60; RESP 15; TEMP 36.1; O2SAT 96
[2023-12-24 09:13] VITALS: BP 132/64; PULSE 60; RESP 15; O2SAT 98
[2023-12-24 09:28] VITALS: BP 141/69; PULSE 61; RESP 16; TEMP 36.1; O2SAT 98
--- NOTE | 2023-12-24 10:57 | OP_ITS ---
DATE OF SERVICE: 12/24/2023 SURGEON: Alfredo Cole MD INDICATIONS: Colon cancer screening and prior history of adenomatous colon polyps. PREOPERATIVE DIAGNOSIS: POSTOPERATIVE DIAGNOSIS: PROCEDURE PERFORMED: Colonoscopy to the terminal ileum with biopsy and snare polypectomy. ESTIMATED BLOOD LOSS: COMPLICATIONS: ANESTHESIA: Monitored anesthesia care. ASSISTANTS: SPECIMENS: DESCRIPTION OF PROCEDURE: A history and physical was performed. The risks and benefits of the procedure were explained to the patient. Informed consent was obtained. The patient was placed in the left lateral decubitus position. A digital rectal exam was performed and was found to be normal. The Olympus pediatric video colonoscope was introduced into the rectum and advanced to the cecum. The cecum was identified by transillumination, palpation, and identification of ileocecal valve. Examination was performed. The scope was removed. She tolerated the procedure well and was returned to the recovery area in stable condition. FINDINGS: The terminal ileum appeared normal. The visualized colonic mucosa was normal. The quality of the prep was good. Two polyps at 80 cm were removed, one with a biopsy forceps and one with a snare, both measured less than 10 mm. The 3rd polyp at 40 cm was removed using a snare and recovered via suction. No other polyps were identified. Retroflexed examination showed moderate-sized internal hemorrhoids. IMPRESSION: Colon polyps. RECOMMENDATION: Follow up the biopsy results. MD DENISE Mcghee/AL / [id number]
== END 2023-12-24 10:13 | disposition home or self-care (01) ==
PROVIDERS: PCP Nurse Practitioner Family; Visit Provider Internal Medicine Gastroenterology
PROC: 0DJD8ZZ Inspection of Lower Intestinal Tract, Via Natural or Artificial Opening Endoscopic (ICD-10-PCS; CPT 45378; principal; 2023-12-24 08:20)
DX: Z12.11 Encounter for screening for malignant neoplasm of colon (principal); D12.5 Benign neoplasm of sigmoid colon; K64.8 Other hemorrhoids; Z86.010 Personal history of colon polyps
CPT/HCPCS: 45385; 45380; 88305; J2250; J2704

== ENCOUNTER 2023-12-26 12:46 | Outpatient (REF) | payer MEDICARE, SELFPAY | END 2023-12-26 12:47 | disposition home or self-care (01) | LOC: HO.SH 12:46 | PROVIDERS: Visit Provider Nurse Practitioner Family | DX: Z01.118 Encounter for examination of ears and hearing with other abnormal findings (principal); H90.3 Sensorineural hearing loss, bilateral | CPT/HCPCS: 92552; 92555 ==

== ENCOUNTER 2024-01-06 16:21 | Outpatient (AMB) | payer MEDICARE, SELFPAY ==
--- NOTE | 2024-01-06 16:28 | MHC.PC.OV ---
Vital Signs 01/06/24 16:29 01/06/24 17:52 Height 5 ft 2 in Weight 159 lb 8 oz BMI 29.2 BP 150/84 H 132/84 Blood Pressure Location Lt brachial Position Sitting Pulse 72 Pulse Source Pulse Oximeter Pulse Oximetry (%) 97 Oxygen Delivery Method Room Air Intake Visit Reasons: Anxiety F/U Allergies silvia Allergy (Severe, Verified 01/06/24 16:31) DIFF BREATHING - TRACHEAL EDEMA Penicillins [PENICILLINS] Allergy (Intermediate, Verified 01/06/24 16:31) hives/rash bupropion [From Wellbutrin] Adverse Reaction (Intermediate, Verified 01/06/24 16:31) Anxiety erythromycin base [ERYTHROMYCIN BASE] Adverse Reaction (Intermediate, Verified 01/06/24 16:31) DRUG RELATED HEPATITIS Poison [place] Allergy (Unknown, Uncoded 01/06/24 16:31) Unknown Tobacco use date assessed: 01/06/24 Fall risk assessment: No Falls in past year Last assessed Fall Risk: 01/06/24 Dental Screening Dental Screen Date: 01/06/24 Did you have a dental visit in the last 12 months?: Yes Did you have a dental problem in the last 6 months where you did not have access to dental care?: No Was dental information given to patient?: Patient has dentist HPI Anxiety F/U HPI Details anxiety and depression: Recently started on duloxetine by psychiatry (for approx 6 weeks), pt reports noticing a big difference for the positive. She has been off of fluoxetine. Still has ativan for prn use. Pt denies any SI or HI. Will cont to monitor [facility] Medical History Hearing loss Anxiety HTN (hypertension) Major depression, recurrent Systolic murmur Osteoporosis Osteoarthritis Mild depression Uterine fibroid Drug-induced hepatitis Surgical History History of tooth extraction H/O colonoscopy Hx of meniscectomy of right knee Family History Father HTN (hypertension) Coronary artery disease Mother HTN (hypertension) Cardiomyopathy Smoker Depression Other Mental health disorder Social History Housing: House Alcohol intake: current Alcohol intake frequency: holidays/special occasions only Patient Tobacco Use Status: Never used Tobacco e-Cigarette/Vaping Use: Never Used Second Hand Smoke Exposure: Yes (as a child) Current occupational status: other Current occupation: [employer] Cognitive needs: No Hearing needs: No Vision needs: No Questionnaire Thrive Questionnaire Date Thrive assessed: 03/01/22 AMBER-7 AMB Questionnaire AMBER-7 Date AMBER - 7 assessed: 03/01/22 Source: Developed by Drs. Unruly An, Shannon Merino, Mkie Rodriguez and colleagues, with an educational natalia from [employer]. Physical exam (Primary Care) Vital Signs: Last Vital Signs Pulse 72 01/06/24 16:29 BP 150/84 H 01/06/24 16:29 Pulse Ox 97 01/06/24 16:29 Oxygen Delivery Method Room Air 01/06/24 16:29 BMI result Body Mass Index 29.2 Tobacco/Smoking Status: Tobacco use Status Tobacco use date assessed 01/06/24 01/06/24 16:33 Patient Tobacco Use Status Never used Tobacco 01/06/24 16:28 e-Cigarette/Vaping Use Never Used 01/06/24 16:28 Thrive Assessment: Date of Thrive Assessment Date Thrive assessed 03/01/22 01/06/24 16:28 Resp Effort & Inspection: normal respiratory effort Auscultation: clear to auscultation bilaterally Cardio Rate: regular rate Rhythm: regular rhythm Heart sounds: S1 normal heart sound present, S2 normal heart sound present and Murmur heart sound present systolic (faint) Assessment and Plan Assessment & Plan (1) Major depression, recurrent: Code(s): F33.9 - Major depressive disorder, recurrent, unspecified Plan: duloxetine is working well (2) Anxiety: Code(s): F41.9 - Anxiety disorder, unspecified Plan: duloxetine is working well Coding Level of Care Code Est Pt Level 3 (51055) Diagnoses Major depression, recurrent F33.9 Anxiety F41.9
[2024-01-06 16:29] VITALS: BP 150/84; PULSE 72; O2SAT 97; BMI 29.2
[2024-01-06 17:52] VITALS: BP 132/84
== END 2024-01-06 17:38 | disposition home or self-care (01) ==
PROVIDERS: PCP Nurse Practitioner Family; Visit Provider Nurse Practitioner Family
DX: F33.9 Major depressive disorder, recurrent, unspecified (principal); F41.9 Anxiety disorder, unspecified
CPT/HCPCS: 99213

== ENCOUNTER 2024-02-05 12:10 | Outpatient (REF) | payer MEDICARE, SELFPAY ==
--- NOTE | ~2024-02-05 | XR_ITS ---
EXAMINATION: XR CHEST XR RIBS, RIGHT CLINICAL INFORMATION: Pleurodynia Patient states fall COMPARISON: None available. TECHNIQUE: 3 views of the right ribs were obtained. PA and lateral view of the chest. FINDINGS: There is a small right pleural effusion with slight streaky density at the right lung base suggestive of atelectasis. Trace retrocardiac atelectasis is seen on the left. The cardiomediastinal silhouette and pulmonary vasculature are normal. There is mild elevation of the right hemidiaphragm. Calcification of the thoracic aorta is indicative of atherosclerotic disease. A radiopaque skin marker is placed over the right eighth posterior rib corresponding to the area of pain indicated by the patient. There is moderate compression of a midthoracic vertebral body. This is of unknown chronicity. No displaced right rib fracture. XR/XR ribs RT 2V IMPRESSION: 1. No rib fracture is seen. 2. Moderate compression of a midthoracic vertebral body of unknown chronicity. 3. Small right pleural effusion. 4. Bibasilar atelectasis.
--- NOTE | ~2024-02-05 | XR_ITS ---
EXAMINATION: XR CHEST XR RIBS, RIGHT CLINICAL INFORMATION: Pleurodynia Patient states fall COMPARISON: None available. TECHNIQUE: 3 views of the right ribs were obtained. PA and lateral view of the chest. FINDINGS: There is a small right pleural effusion with slight streaky density at the right lung base suggestive of atelectasis. Trace retrocardiac atelectasis is seen on the left. The cardiomediastinal silhouette and pulmonary vasculature are normal. There is mild elevation of the right hemidiaphragm. Calcification of the thoracic aorta is indicative of atherosclerotic disease. A radiopaque skin marker is placed over the right eighth posterior rib corresponding to the area of pain indicated by the patient. There is moderate compression of a midthoracic vertebral body. This is of unknown chronicity. No displaced right rib fracture. XR/XR chest 2V IMPRESSION: 1. No rib fracture is seen. 2. Moderate compression of a midthoracic vertebral body of unknown chronicity. 3. Small right pleural effusion. 4. Bibasilar atelectasis.
== END 2024-02-05 12:11 | disposition home or self-care (01) ==
LOC: HO.XRAY 12:10
PROVIDERS: Visit Provider Nurse Practitioner Family
DX: R07.81 Pleurodynia (principal); W19.XXXD Unspecified fall, subsequent encounter
CPT/HCPCS: 71046; 71100

== ENCOUNTER 2024-05-06 07:56 | Outpatient (REF) | payer MEDICARE, SELFPAY ==
[2024-05-06 10:23] LABS: MANUAL DIFF FLAG NO
[2024-05-06 10:45] LABS: Basophils Percent Auto 0.6 % (0-2); Eosinophils Absolute Auto 0.1 X10*3/uL (0.0-0.4); Eosinophils Percent Auto 1.7 % (0-4); Hematocrit 39.9 % (37.0-47.0); Imm Gran Abs Auto 0.01 X10*3/uL (0.00-0.03); Imm Gran Pct Auto 0.2 % (0.0-0.4); Lymphocytes Absolute Auto 1.9 X10*3/uL (1.2-4.9); Mean Corpuscular HGB Conc 32.6 g/dl (31.0-35.0); Mean Corpuscular Hemoglobin 29.4 pg (27.0-33.0); Mean Corpuscular Volume 90.3 fL (80.0-98.0); Mean Platelet Volume 10.6 fL (9.4-12.3); Monocytes Absolute Auto 0.7 X10*3/uL (0.1-1.2); Monocytes Percent Auto 10.5 % (2-11); Neutrophils Absolute Auto 3.7 x10*3/uL (2.0-8.3); Platelet Count 205 X10*3/uL (160-400); Red Blood Count 4.42 X10*6/uL (4.20-5.50); Red Cell Distribution Width 13.3 % (11.0-16.0); White Blood Count 6.4 X10*3/uL (4.8-10.8)
[2024-05-06 11:03] LABS: Alanine Aminotransferase 16 U/L (0-31); Albumin Level 3.7 g/dL (3.5-5.0); Alkaline Phosphatase 67 U/L (39-117); Anion Gap 13 (12-20); Aspartate Amino Transferase 20 U/L (5-31); Bilirubin Total 0.5 mg/dL (0.0-1.0); Blood Urea Nitrogen 16 mg/dL (9-16); Carbon Dioxide 28 mmol/L (22-29); Chloride 104 mmol/L (96-108); Cholesterol 170 mg/dL (<200); Estimated Glomerular Filt Rate > 60; Glucose Fasting 97 mg/dL (60-99); HDL Cholesterol 54 mg/dL (>40); LDL Cholesterol Calculated 105 mg/dL (<100); Sodium 141 mmol/L (135-145); Total Protein 6.5 g/dL (6.5-8.0); Triglycerides 55 mg/dL (<150)
[2024-05-06 11:10] LABS: TSH reflex Free T4 0.88 uIU/mL (0.32-4.0); Vitamin D 25-OH Total 39.6 ng/mL (>30)
== END 2024-05-06 07:57 | disposition home or self-care (01) ==
LOC: HO.HMGCLDS 07:56
PROVIDERS: PCP Nurse Practitioner Family; Visit Provider Nurse Practitioner Family
DX: I10 Essential (primary) hypertension (principal); E55.9 Vitamin D deficiency, unspecified
CPT/HCPCS: 36415; 80053; 80061; 82306; 84443; 85025

== ENCOUNTER 2024-05-18 08:30 | Outpatient (REF) | payer MEDICARE, SELFPAY ==
[2024-05-18 10:58] LABS: Appearance Urine Clear; Color Urine Yellow; Glucose Urine UA Negative (Negative); Leukocyte Esterase Urine Negative (Negative); Nitrite Urine Negative (Negative); Urine Blood Negative (Negative); Urine Ketones Negative (Negative); Urine Protein Negative (Neg-Trace)
== END 2024-05-18 08:31 | disposition home or self-care (01) ==
LOC: HO.HMGCLNP 08:30
PROVIDERS: PCP Nurse Practitioner Family; Visit Provider Nurse Practitioner Family
DX: I10 Essential (primary) hypertension (principal)
CPT/HCPCS: 81003

== ENCOUNTER 2024-08-05 14:26 | Outpatient (REF) | payer MEDICARE, SELFPAY ==
--- NOTE | ~2024-08-05 | XR_ITS ---
EXAMINATION: XR LUMBOSACRAL SPINE CLINICAL INFORMATION: Lower back pain. COMPARISON: Lumbar spine radiographs dated 12/08/2018. TECHNIQUE: Three views of the lumbosacral spine. FINDINGS: Mild dextrocurvature of the lumbar spine, unchanged. The lumbar lordosis is maintained. No acute fracture or subluxation. No loss of vertebral body height. Multilevel loss of intervertebral disc height with endplate osteophytes and lower lumbar spine facet arthropathy, progressed when compared to the prior examination. Atherosclerotic calcifications. Probable calcified fibroids. XR/XR lumbar spine 2-3V IMPRESSION: Moderate multilevel degenerative disc disease and lower lumbar spine facet arthropathy, progressed when compared to the prior examination. Electronically signed by: Arthur Hanson MD 08/20/2024 08:56 PM EDT
== END 2024-08-05 14:27 | disposition home or self-care (01) ==
LOC: HO.HMGCX 14:26
PROVIDERS: PCP Nurse Practitioner Family; Visit Provider Nurse Practitioner Family
DX: M54.50 Low back pain, unspecified (principal)
CPT/HCPCS: 72100

== ENCOUNTER 2024-09-08 14:00 | Outpatient (RCR) | payer MEDICARE, SELFPAY ==
--- NOTE | 2024-08-11 14:47 | MHC.PT.EP ---
[facility] [place] [facility] [place] [facility] [place] [facility] [address] Fadia Wilson [address] [phone] F: [phone] F: [phone] F: [phone] F: [phone] Physical Therapy Plan of Care Date of Evaluation: 08/11/24 Date of Surgery: n/a Diagnosis: low back pain Assessment: Patient is a 78 year old female presenting to PT with complaints of pain in her low back. Pt reports onset of pain began forever ago due to insidious onset. She presents today with impairments in pain, ROM, core strength, hip strength, posture. 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 Pt expresses senior care goal of reducing pain, and is motivated to work towards this in PT. Clinical presentation today is most consistent with signs and sx associated with low back pain and pt will benefit from skilled PT 2 week x 4 weeks to address the following problems and impairments noted upon evaluation: pain, ROM, core strength, hip strength, posture. These problems limit the patient with the following functional activities: ADLs, caring for puppies, bending, lifting, sitting, standing. The prescribed treatment plan of care is medically necessary. Co-morbidities of osteoporosis, heart murmur were identified and taken into considerations of plan of care. Pt was educated on HEP, role of PT, prognosis, POC. Frequency and Duration: The patient will be seen 2 x week x 4 weeks Short Term Goals: Pt will demonstrate less numbness in her thigh in 2 weeks. Pt will demonstrate improved hip MMT strength by 1/3 grade in 2 weeks for improved lumbopelvic stability. Pt will demonstrate ability to perform PPT with good control in 2 weeks. [place] Goals: Pt will demonstrate improved Sharon score by 10% in 4 weeks for improved functional mobility. Pt will demonstrate ability to complete ADLs with min to no pain in 4 weeks for return to PLOF. Pt will demonstrate ability to stand with min to no pain in 4 weeks for return to PLOF. Treatment Plan: Modalities to reduce pain, spasms and effusion. Manual therapy to restore motion and function. Therapeutic exercise to improve strength and flexibility. Neuromuscular re-education for posture and balance. Therapeutic activities to return to functional activities of daily living. Electronically signed by: Josie Cortez, PT, DPT, ATC Please sign and return to therapist. Thank you for your referral.
--- NOTE | 2024-10-13 13:23 | MHC.PT.DC ---
[facility] [place] Office [place] Office [place] Office [address] Fadia Wilson [address] [phone] F: [phone] F: [phone] F: [phone] F: [phone] Physical Therapy Discharge Report Diagnosis: low back pain Date of Surgery: n/a Date of Evaluation: 08/11/24 Date of Discharge: 10/13/24 Treatments to Date: 5 Cancellations to Date: 1 No Shows to Date: 0 Discharge Status: Discharge Summary: Pt had been placed on 30 day hold at last visit. Has not reached out in >30 days and therefore to be d/c. Electronically signed by: Josie Cortez, PT, DPT, ATC Please sign and return to therapist. Thank you for your referral.
== END 2024-10-13 13:23 | disposition home or self-care (01) ==
LOC: HO.PTCHIC 14:00
PROVIDERS: PCP Nurse Practitioner Family; Visit Provider Nurse Practitioner Family
DX: M54.50 Low back pain, unspecified (principal)
CPT/HCPCS: 97110; 97112; 97161

== ENCOUNTER → 2024-10-12 15:55 | Outpatient (BNVA) | payer MEDICARE, SELFPAY | PROVIDERS: PCP Nurse Practitioner Family; Visit Provider Nurse Practitioner Family | DX: M54.50 Low back pain, unspecified (principal); M81.0 Age-related osteoporosis without current pathological fracture | CPT/HCPCS: 96127; 99212 ==

== ENCOUNTER → 2024-10-12 15:55 | Outpatient (AMB) | payer MEDICARE, SELFPAY ==
[2024-10-12 15:58] VITALS: BP 126/78; PULSE 66; O2SAT 97; BMI 30.2
--- NOTE | 2024-10-12 15:58 | A.OFFPC_ITS ---
Vital Signs 10/12/24 15:58 Height 5 ft 2 in Weight 165 lb BMI 30.2 BP 126/78 Blood Pressure Location Rt brachial Position Sitting Pulse 66 Pulse Source Pulse Oximeter Pulse Oximetry (%) 97 Intake Visit Reasons: follow up per isra Harris Note: pt is here for follow up Sort Operations Supervisor Required: No Accompanied by: Self / Same As Patient Allergies silvia Allergy (Severe, Verified 10/12/24 15:58) DIFF BREATHING - TRACHEAL EDEMA Penicillins [PENICILLINS] Allergy (Intermediate, Verified 10/12/24 15:58) hives/rash bupropion [From Wellbutrin] Adverse Reaction (Intermediate, Verified 10/12/24 15:58) Anxiety erythromycin base [ERYTHROMYCIN BASE] Adverse Reaction (Intermediate, Verified 10/12/24 15:58) DRUG RELATED HEPATITIS Poison [place] Allergy (Unknown, Uncoded 01/06/24 16:31) Unknown Tobacco use date assessed: 01/06/24 Fall risk assessment: No Falls in past year Last assessed Fall Risk: 10/12/24 Dental Screening Dental Screen Date: 01/06/24 HPI follow up per isra HPI Details anxiety/depression doing better with use of cymbalta 60mg. Pt does not see a therapist but does see a psychiatrist. Does still reports quite a bit of stress at home at times. I did recommend couples therapy, for both the pt and her . Pt denies any SI or HI. HTN: stable, denies any dizziness, Blurred vision, GRANADO, SOB, or CP. Chronic lower back pain, please see XR results. Pt would like to be referred back to PT, denies any s/s of cauda equina. PFSH Medical History Degenerative disc disease, lumbar Hearing loss Anxiety HTN (hypertension) Major depression, recurrent Systolic murmur Osteoporosis Osteoarthritis Mild depression Uterine fibroid Drug-induced hepatitis Surgical History History of tooth extraction H/O colonoscopy Hx of meniscectomy of right knee Family History Father HTN (hypertension) Coronary artery disease Mother HTN (hypertension) Cardiomyopathy Smoker Depression Other Mental health disorder Social History Housing: House Alcohol intake: current Alcohol intake frequency: holidays/special occasions only Patient Tobacco Use Status: Never used Tobacco e-Cigarette/Vaping Use: Never Used Second Hand Smoke Exposure: Yes (as a child) Current occupational status: other Current occupation: [employer] Cognitive needs: No Hearing needs: No Vision needs: No Questionnaire PHQ-9 Over the last 2 weeks, how often have you been bothered by any of the following problems? 1. Little interest or pleasure in doing things: more than half the days 2. Feeling down, depressed, or hopeless: several days 3. Trouble falling or staying asleep, or sleeping too much: not at all 4. Feeling tired or having little energy: several days 5. Poor appetite or overeating: not at all 6. Feeling bad about yourself - or that you are a failure or have let yourself or your family down: not at all 7. Trouble concentrating on things, such as reading the newspaper or watching television: several days 8. Moving or speaking so slowly that other people could have noticed. Or the opposite - being so fidgety or restless that you have been moving around a lot more than usual: not at all 9. Thoughts that you would be better off or of hurting yourself in some way: not at all Total score: 5 Depression Screening Interpretation: Negative Depression Screening Done: Yes 67648 - PHQ-9 Billing: Yes Source: Developed by Drs. Unruly An, Shannon Merino, Mike Rodriguez and colleagues, with an educational natalia from [employer]. Thrive Questionnaire Date Thrive assessed: 10/12/24 I am a: Patient What is your living situation today?: I have a steady place to live Within the past 12 months, did the food you bought not last and you didn't have the money to get more?: Never true Within the past 12 months, did you worry whether your food would run out before you got money to buy more?: Never true Do you have trouble paying for medicines?: No Do you have trouble getting transportation to medical appointments?: No Do you have trouble paying your heating and electricity bill?: No Do you have trouble taking care of your child, family member or friend?: No Do you have trouble with day-to-day activities such as bathing, preparing meals, shopping, managing finances, etc.?: No Are you currently unemployed and looking for a job?: No Are you interested in more education?: No Please select the resources that you would like help with: None Currently or been in a relationship where the following occur: No concerns reported THRIVE Score: 0 AUDIT C Alcohol Use Questionnaire (AUDIT-C) 1. How often do you have a drink containing alcohol?: Monthly or less 2. How many drinks containing alcohol do you have on a typical day when you are drinking?: 1 or 2 3. How often do you have six or more drinks on one occasion?: Never Total Score: 1 Score Reviewed/Action Taken: Yes AMBER-7 AMB Questionnaire AMBER-7 Date AMBER - 7 assessed: 10/12/24 Feeling nervous, anxious, or on edge: 1 = Several days Not being able to stop or control worryin = Several days Worrying too much about different things: 0 = Not at all Trouble relaxin = More than half the days Being so restless that it is hard to sit still: 1 = Several days Becoming easily annoyed or irritable: 2 = More than half the days Feeling afraid as if something awful might happen: 0 = Not at all Total AMBER-7 score (0-4 normal; 5-9 mild; 10-14 moderate; 15-21 severe): 7 Source: Developed by Drs. Unruly An, Shannon Merino, Mike Rodriguez and colleagues, with an educational natalia from [employer]. AMBER-7 Assessment Billing AMBER-7 Assessment Tool: AMBER-7 Assessment 82251 Physical exam (Primary Care) Vital Signs: Last Vital Signs Pulse 66 10/12/24 15:58 BP 126/78 10/12/24 15:58 Pulse Ox 97 10/12/24 15:58 BMI result Body Mass Index 30.2 Tobacco/Smoking Status: Tobacco use Status Tobacco use date assessed 01/06/24 10/12/24 16:00 Patient Tobacco Use Status Never used Tobacco 10/12/24 16:00 e-Cigarette/Vaping Use Never Used 10/12/24 16:00 PHQ-9: PHQ-9 Score PHQ-9: Total score 5 10/12/24 16:20 Depression Screening Interpretation: Negative Thrive Assessment: Date of Thrive Assessment Date Thrive assessed 10/12/24 10/12/24 16:00 Currently or been in a relationship where the following occur: No concerns reported Resp Effort & Inspection: normal respiratory effort Auscultation: clear to auscultation bilaterally Cardio Rate: regular rate Rhythm: regular rhythm Heart sounds: S1 normal heart sound present and S2 normal heart sound present Extrem Right lower extremity: no edema Left lower extremity: no edema Psych Appearance: grossly normal Mental Status: mental status grossly normal Speech and movement: Normal speech and movement present Affect: normal affect Attitude: cooperative Thought process: Normal thought process present Thought content: Normal thought content present Insight: Good insight present (Psych) Judgement: Good judgement present (Psych) Coding Level of Care Code Est Pt Level 3 (08619) Diagnoses Lower back pain M54.50 Osteoporosis M81.0 Additional Codes AMBER-7 Assessment Billing - AMBER-7 Assessment Tool: AMBER-7 Assessment 05096 ([id number]) PHQ-9 - 25618 - PHQ-9 Billing: Yes ([id number]) Assessment & Plan Assessment & Plan (1) Lower back pain: Code(s): M54.50 - Low back pain, unspecified Category: Medical Plan: pt requested a referral back to PT for lower back pain (2) Osteoporosis: Code(s): M81.0 - Age-related osteoporosis without current pathological fracture Category: Medical Plan: bone density ordered Orders: Orders PT Evaluation and Treatment Today M54.50 - Low back pain, unspecified MM screening mammo BI Today Z12.31 - Encounter for screening mammogram for malignant neoplasm of breast XR DEXA axial skeleton Today M81.0 - Age-related osteoporosis without current pathological fracture
== END ==
PROVIDERS: PCP Nurse Practitioner Family; Visit Provider Nurse Practitioner Family
DX: M54.50 Low back pain, unspecified (principal); M81.0 Age-related osteoporosis without current pathological fracture

== ENCOUNTER 2024-11-12 13:25 | Outpatient (REF) | payer SELFPAY | END 2024-11-12 13:26 | disposition home or self-care (01) | LOC: HO.HAP 13:25 | PROVIDERS: Visit Provider Nurse Practitioner Family | DX: Z13.89 Encounter for screening for other disorder (principal) ==

== ENCOUNTER 2024-12-07 13:26 | Outpatient (REF) | payer SELFPAY | END 2024-12-07 13:27 | disposition home or self-care (01) | LOC: HO.HAP 13:26 | PROVIDERS: Visit Provider Nurse Practitioner Family | DX: Z13.89 Encounter for screening for other disorder (principal) ==

== ENCOUNTER 2024-12-10 10:31 | Outpatient (REF) | payer SELFPAY ==
--- NOTE | 2024-12-10 12:19 | MHC.AU.HA3 ---
Hearing Instrument Follow-Up- Binaural Date of Visit: 12/10/24 Right Ear: Sam, Model, Color, Serial Number: Gene Russell [id number]-[id number] S#[id number] Presentation Specialist Repair Warranty: 12/13/2024 Presentation Specialist Loss and Damage Warranty: 11/12/2024 [facility] Service Plan: 11/12/24 Battery Size: Rechargeable Pumper Gauger/Slim Tube: Size 1 M Earmold/Dome/CShell/SlimTip:med vented Type of Wax Guard: Cerushield Dispensed By: [facility] Date of Fittin08/22/2021 Left Ear: Sam, Model, Color, Serial Number: Gene Russell [id number] S#[id number] Presentation Specialist Repair Warranty: 12/13/2024 Presentation Specialist Loss and Damage Warranty: 11/12/2024 [facility] Service Plan: 11/12/24 Battery Size: Rechargeable Pumper Gauger/Slim Tube: Size 1 M Earmold/Dome/CShell/SlimTip: med vented Type of Wax Guard: Cerushield Dispensed By: [facility] Date of Fittin08/22/2021 Follow-Up Summary: Chanelle is here with some questions about the charles and hearing aids today. She notes difficulty hearing people when the TV or radio is also on, notes trouble hearing when spoken to from the other room. Discussed difficult listening situations and communication strategies. Phone was not connecting with right aid. Had to forget all and re-pair. All appears fine with phone now. Recommendations: Recommendations: Hearing instrument follow-up or maintenance as needed. Diagnosis Code(s): Primary Diagnosis: H90.3 Bilateral Sensorineural Hearing Loss Signature: Provider: Alec Goddard, CCC-A
== END 2024-12-10 10:32 | disposition home or self-care (01) ==
LOC: HO.HAP 10:31
PROVIDERS: Visit Provider Nurse Practitioner Family
DX: Z13.89 Encounter for screening for other disorder (principal)

== ENCOUNTER 2024-12-15 12:38 | Outpatient (REF) | payer SELFPAY ==
--- NOTE | ~2024-12-15 | MM_ITS ---
EXAMINATION: MM SCREENING DIGITAL BREAST TOMOSYNTHESIS, BILATERAL CLINICAL INFORMATION: Screening. Asymptomatic. COMPARISON: Mammography: Comparison is made with available priors TECHNIQUE: Digital breast mammography with tomosynthesis is performed in both the craniocaudal and mediolateral oblique views along with computer-aided detection (CAD). FINDINGS: There are scattered areas of fibroglandular density (ACR BI-RADS breast composition Category b). There are no significant masses, abnormal calcifications, or other abnormalities. MM/MM tomosynthesis screening BI IMPRESSION: No mammographic evidence of malignancy. ASSESSMENT: BI-RADS BI-RADS 1 - Negative RECOMMENDATION: Routine annual mammography screening. 1 year F/U This examination should not preclude the clinical evaluation of a suspicious palpable abnormality. This patient's information was entered into a reminder system with a target due date for their next mammogram. Electronically signed by: Franny Christensen DO 12/26/2024 10:39 AM BRANDON
--- NOTE | ~2024-12-15 | MM_ITS ---
EXAMINATION: Dual-Energy X-ray Absorptiometry - Bone Density Study HISTORY: Estrogen deficiency TECHNIQUE: Experiment Dual energy absorptiometry (DEXA) of the lumbar spine, total left hip, and femoral neck was performed. COMPARISON: Comparison is made with the prior examination dated 09/15/2021. FINDINGS: The bone mineral density of the lumbar spine is 0.918 with a T-score of -2.2, and a Z-score of -0.7. This represents a BMD change of 1.3% compared to the prior exam. This is not statistically significant. The bone mineral density of the left total hip is 0.626 with a T-score of -3.0, and a Z-score of -1.4. This represents BMD change of -6.6% compared to the prior exam. This is statistically significant. The bone mineral density of the left femoral neck is 0.626 with a T-score of -3.0, and a Z-score of -1.1. This represents BMD change of -0.6% compared to the prior exam. FRACTURE RISK: The FRAX index suggests a ten year probability of major osteoporotic fracture of 53.6%, and of hip fracture 40.2%. MM/XR DEXA axial skeleton IMPRESSION: Based on bone mineral density, and according to World Health Organization (WHO) criteria, the diagnosis is consistent with osteoporosis. All bone density values are in grams per centimeter squared. At this facility, the least significant change in BMD with 95% confidence is 0.022 at the lumbar spine, 0.027 at the hip, and 0.023 at the distal 1/3 radius. Electronically signed by: Unruly Salas MD 12/16/2024 09:53 AM EST
== END 2024-12-15 12:39 | disposition home or self-care (01) ==
LOC: HO.MAMMO 12:38
PROVIDERS: PCP Nurse Practitioner Family; Visit Provider Nurse Practitioner Family
DX: Z12.31 Encounter for screening mammogram for malignant neoplasm of breast (principal); M81.0 Age-related osteoporosis without current pathological fracture
CPT/HCPCS: 77063; 77067; 77080

== ENCOUNTER → 2024-12-15 13:00 | Outpatient (BNV) | payer SELFPAY | PROVIDERS: PCP Nurse Practitioner Family; Visit Provider Radiology Diagnostic Radiology | DX: Z12.31 Encounter for screening mammogram for malignant neoplasm of breast (principal) | CPT/HCPCS: 77063; 77067 ==

== ENCOUNTER 2025-01-29 13:29 | Outpatient (REF) | payer MEDICARE, SELFPAY ==
[2025-01-29 14:21] LABS: Influenza A PCR NEGATIVE (Negative); Influenza B PCR NEGATIVE (Negative); Resp Syncy Virus RNA Qual PCR NEGATIVE (Negative); SARS COV2 PCR INHOUSE NEGATIVE (Negative)
--- OUTSIDE RECORDS SUMMARY | 2025-01-29 15:36 | XMS_ITS ---
Author Organization [facility] Address [address] [place] [address] Care Team Providers Care Clin Application Specialist Name Role Phone NÉSTOR SPENCER Primary Care Provider Alfredo Wetzel Jr REASON FOR VISIT colon screening Encounters Encounter Location Date Provider Diagnosis [facility] [address] [place] [phone] 12/24/2023 Alfredo Cole Jr Encounter for screening colonoscopy Z12.11 ; Personal history of colonic polyps Z86.010 and Colon polyps K63.5 ASSESSMENTS Encounter Date Diagnosis Assessment Notes Treatment Notes Treatment Clinical Notes 12/24/2023 Encounter for screening colonoscopy (ICD-10 - Z12.11) 12/24/2023 Personal history of colonic polyps (ICD-10 - Z86.010) 12/24/2023 Colon polyps (ICD-10 - K63.5) PLAN OF TREATMENT No Information
--- OUTSIDE RECORDS SUMMARY | 2025-01-29 15:36 | XMS_ITS | Patient Health Record ---
Author Organization [facility] Address [address] [place] [address] Care Team Providers Care Materials Management Supervisor Name Role Phone NÉSTOR SPENCER Primary Care Provider Alfredo Wetzel Jr Unavailable [phone] ALLERGIES Allergen (clinical drug ingredient) Drug/Non Drug Allergy documented on EMR Reaction Allergy Type Onset Date Status Penicillin Unknown Drug Allergy Active erythromycin Erythromycin Ethylsuccinate Unknown Drug Allergy Active REASON FOR REFERRAL No Information MEDICATIONS Medication SIG (Take, Route, Frequency, Duration) Notes Start Date End Date Status Clenpiq 10-3.5-12 MG-GM -GM/160ML 1 ml Orally for 1 days 08/12/2020 Activ e Lexapro 10mg one qd Active Suprep Bowel Prep 1 as directed Orally 1 for 1 dose 05/07/2013 12/02/2024 Active Ativan 0.5mg one qd Active SOCIAL HISTORY Sex Assigned At : Social History Observation Description Sex Assigned At Unknown PROBLEMS Problem Type ICD Code Onset Dates Problem Status W/U Status Risk SNOMED Code Notes Problem Colon cancer screening (Z12.11) Active confirmed [id number] Problem Personal history of colonic polyps (Z86.010) Active confirmed [id number] PLAN OF TREATMENT Future Test Test Name Order Date COLONOSCOPY 05/07/2013 Insurance Providers Payer Name Payer Address Payer Phone Subscriber Number Group Number Insured Name Patient Relationship to Insured Coverage Start Date Coverage End Date MEDICARE OF [place] [address] [place] [id number] [id number] NATALIE HARO Self - patient is the insured [employer] ATTN CLAIMS [address] [place] [address] [id number] NATALIE HARO Self - patient is the insured MEDICAL (GENERAL) HISTORY Medical History History ICD Code drug induced Hepatitis (erythromycin eth ylsuccinate) uterine fibroid mild depression osteoporosis Surgical History Surgery Date(Month/Year) Dental extracts Dental implants
--- OUTSIDE RECORDS SUMMARY | 2025-01-29 15:37 | XMS_ITS ---
Author Organization [facility] Address [address] [place] [address] Care Team Providers Care Dedicated Truck Driver Name Role Phone STACYJOSE R NÉSTOR Primary Care Provider Alfredo Wetzel Jr [phone] REASON FOR VISIT H & P Encounters Encounter Location Date Provider Diagnosis [facility] [address] [place] [address] 12/20/2023 Alfredo Cole Jr PLAN OF TREATMENT No Information
--- OUTSIDE RECORDS SUMMARY | 2025-01-29 15:37 | XMS_ITS ---
Author Organization [facility] Address [address] [place] [address] Care Team Providers Care Spiritual Care Coordinator Name Role Phone STACYJOSE R NÉSTOR Primary Care Provider Alfredo Wetzel Jr [phone] REASON FOR VISIT pathology Encounters Encounter Location Date Provider Diagnosis [facility] [address] [place] [address] 01/02/2024 Alfredo Cole Jr PLAN OF TREATMENT No Information
== END 2025-01-29 13:30 | disposition home or self-care (01) ==
LOC: HO.LNP 13:29
PROVIDERS: Visit Provider Nurse Practitioner Family
DX: R09.89 Other specified symptoms and signs involving the circulatory and respiratory systems (principal)
CPT/HCPCS: 0241U

== ENCOUNTER 2025-03-04 16:04 | Outpatient (AMB) | payer MEDICARE, SELFPAY ==
[2025-03-04 16:06] VITALS: BP 122/82; PULSE 71; RESP 18; TEMP 36.6; O2SAT 97; BMI 30.5
--- NOTE | 2025-03-04 16:06 | MHC.PC.OV ---
Vital Signs 03/04/25 16:06 Height 5 ft 2 in Weight 167 lb BMI 30.5 BP 122/82 Blood Pressure Location Rt brachial Position Sitting Respiration 18 Pulse 71 Pulse Source Pulse Oximeter Temp 97.9 F Temp Source Oral Pulse Oximetry (%) 97 Oxygen Delivery Method Room Air Intake Visit Reasons: follow up - per isra Harris Note: Pt is here today for a follow up visit. Allergies silvia Allergy (Severe, Verified 03/04/25 16:09) DIFF BREATHING - TRACHEAL EDEMA Penicillins [PENICILLINS] Allergy (Intermediate, Verified 03/04/25 16:09) hives/rash bupropion [From Wellbutrin] Adverse Reaction (Intermediate, Verified 03/04/25 16:09) Anxiety erythromycin base [ERYTHROMYCIN BASE] Adverse Reaction (Intermediate, Verified 03/04/25 16:09) DRUG RELATED HEPATITIS Poison [place] Allergy (Unknown, Uncoded 03/04/25 16:09) Unknown Medication List - Last Reconciled 03/04/25 by SIMON Lopez- acetaminophen (Acetaminophen Extra Strength) 1,000 mg PO QID PRN duloxetine (Cymbalta) 60 mg PO lorazepam 1 mg PO DAILY PRN 90 days metoprolol succinate ER 25 mg PO DAILY triamcinolone acetonide 0.1% 1 appl topical BID 90 days valacyclovir (Valtrex) 500 mg PO BID PRN 30 days Tobacco use date assessed: 03/04/25 Fall risk assessment: 2 + Falls in past year Last assessed Fall Risk: 03/04/25 Dental Screening Dental Screen Date: 03/04/25 Did you have a dental visit in the last 12 months?: Yes Did you have a dental problem in the last 6 months where you did not have access to dental care?: No Was dental information given to patient?: Patient has dentist HPI follow up - per isra HPI Details Chief Complaint The patient presents for follow-up regarding hypertension management and concerns about distal edema and arthritic pain. History of Present Illness The patient is a 79-year-old female presenting for follow-up of her known diagnosis of essential hypertension. Her history is significant for ongoing management of hypertension which has been relatively controlled. She denies any new cardiovascular symptoms, such as chest pain or shortness of breath, and does not report any neurological symptoms such as dizziness or headaches. Gastrointestinal issues such as abdominal pain, bloody stools, constipation, or diarrhea are also denied, allowing us to focus on her hypertension and its management. In addition to her hypertension, she reports experiencing arthritic pain, specifically in her hips and sacroiliac joint region, consistent with osteoarthritis. The arthritic manifestations include crepitus without popping or clicking, reflecting degenerative changes typical of this condition. Her musculoskeletal tenderness is non-exacerbated by palpation. The patient has been managing her conditions consistently with medical advice and remains proactive in her health maintenance, knows moving and exercises can help Social History Health Maintenance - Encouraged to have laboratory evaluations in the future for monitoring hypertension and related health statuses. Review of Systems - Cardiovascular: Denies chest pain and shortness of breath. - Gastrointestinal: Denies abdominal pain, blood in stool, constipation, and diarrhea. - Neurological: Denies dizziness and headaches. Physical Exam General: Cooperative, healthy appearing, comfortable, no acute distress and well developed Orientation: Patient oriented x3 Limitations: No limitations Head: Normal to inspection Ears: Hearing grossly normal bilaterally Nose: Normal external nose present Face and sinus: Normal facial exam Eyes: Appearance normal, both eyes and all related structures Neck: Normal visual inspection and Yes full ROM Respiratory: Normal respiratory effort and able to speak in complete sentences. Clear to auscultation bilaterally Cardiovascular: Regular rate and rhythm. Normal S1 and S2, faint systolic murmur GI: Normal to inspection. Soft to palpation and nontender Skin: No rashes or lesions noted Neuro: Patient oriented x3 Extremities: Normal to inspection, some crepitus noted bilaterally, no popping or clicking reported, trace/sock edema to BLE Results Plan The patient remains under observation for essential hypertension, with a focus on ongoing laboratory evaluations for effective management. Her current treatment strategy is satisfactory as no new cardiovascular complaints are reported. Osteoarthritic symptoms, notably crepitus in the hip region, are being handled conservatively. Current strategies for managing distal edema involve monitoring without further intervention given the lack of acute symptoms. Patient engagement in lifestyle modifications and follow-up planning is emphasized for continued health maintenance. . Discussion Notes During the visit, I reviewed with the patient the current management strategies for her essential hypertension, which remain effective, and we discussed the importance of consistent monitoring through future laboratory tests. I noted the presence of a faint systolic murmur and clear lung johnson. We explored her osteoarthritis symptoms, notably in the hips and SI joint, which manifest as crepitus without inflammatory signs. I advised on conservative management and the patient has been reminded of the importance of lifestyle modifications. We discussed expectations for her current treatments with no acute changes needed. Follow-up precautions and anticipatory guidance for any worsening symptoms were also reviewed. Patient Instructions - Monitor blood pressure regularly and adhere to prescribed antihypertensive regimen. - Schedule and complete recommended laboratory tests to evaluate hypertension management. - Continue conservative management for arthritic pain and monitor any changes. - Report any new symptoms such as chest pain, shortness of breath, or changes in edema to healthcare provider promptly. REPLACED BY [facility] Medical History Degenerative disc disease, lumbar Hearing loss Anxiety HTN (hypertension) Major depression, recurrent Systolic murmur Osteoporosis Osteoarthritis Mild depression Uterine fibroid Drug-induced hepatitis Surgical History History of tooth extraction H/O colonoscopy Hx of meniscectomy of right knee Family History Father HTN (hypertension) Coronary artery disease Mother HTN (hypertension) Cardiomyopathy Smoker Depression Other Mental health disorder Social History Housing: House Alcohol intake: current Alcohol intake frequency: holidays/special occasions only Patient Tobacco Use Status: Never used Tobacco e-Cigarette/Vaping Use: Never Used Second Hand Smoke Exposure: Yes (as a child) service: No Current occupational status: other Current occupation: [employer] Cognitive needs: No Hearing needs: No Vision needs: Yes Questionnaire PHQ-9 Over the last 2 weeks, how often have you been bothered by any of the following problems? 1. Little interest or pleasure in doing things: several days 2. Feeling down, depressed, or hopeless: several days 3. Trouble falling or staying asleep, or sleeping too much: not at all 4. Feeling tired or having little energy: several days 5. Poor appetite or overeating: not at all 6. Feeling bad about yourself - or that you are a failure or have let yourself or your family down: several days 7. Trouble concentrating on things, such as reading the newspaper or watching television: not at all 8. Moving or speaking so slowly that other people could have noticed. Or the opposite - being so fidgety or restless that you have been moving around a lot more than usual: not at all 9. Thoughts that you would be better off or of hurting yourself in some way: not at all Total score: 4 Depression Screening Interpretation: Negative Depression Screening Done: Yes 31173 - PHQ-9 Billing: Yes Source: Developed by Drs. Unruly An, Shannon Merino, Mike Rodriguez and colleagues, with an educational natalia from [employer]. Thrive Questionnaire Date Thrive assessed: 03/04/25 I am a: Patient What is your living situation today?: I have a steady place to live Within the past 12 months, did the food you bought not last and you didn't have the money to get more?: Never true Within the past 12 months, did you worry whether your food would run out before you got money to buy more?: Never true Do you have trouble paying for medicines?: No Do you have trouble getting transportation to medical appointments?: No Do you have trouble paying your heating and electricity bill?: No Do you have trouble taking care of your child, family member or friend?: No Do you have trouble with day-to-day activities such as bathing, preparing meals, shopping, managing finances, etc.?: No Are you currently unemployed and looking for a job?: No Are you interested in more education?: No Please select the resources that you would like help with: None Currently or been in a relationship where the following occur: No concerns reported THRIVE Score: 0 AUDIT C Alcohol Use Questionnaire (AUDIT-C) 1. How often do you have a drink containing alcohol?: 2-3 times a week 2. How many drinks containing alcohol do you have on a typical day when you are drinking?: 1 or 2 3. How often do you have six or more drinks on one occasion?: Never Total Score: 3 Score Reviewed/Action Taken: Yes AMBER-7 AMB Questionnaire AMBER-7 Date AMBER - 7 assessed: 03/04/25 Feeling nervous, anxious, or on edge: 2 = More than half the days Not being able to stop or control worryin = Not at all Worrying too much about different things: 0 = Not at all Trouble relaxin = Several days Being so restless that it is hard to sit still: 0 = Not at all Becoming easily annoyed or irritable: 2 = More than half the days Feeling afraid as if something awful might happen: 1 = Several days Total AMBER-7 score (0-4 normal; 5-9 mild; 10-14 moderate; 15-21 severe): 6 Source: Developed by Drs. Unruly An, Shannon Merino, Mike Rodriguez and colleagues, with an educational natalia from [employer]. AMBER-7 Assessment Billing AMBER-7 Assessment Tool: AMBER-7 Assessment 06384 Physical exam (Primary Care) Vital Signs: Last Vital Signs Temp 97.9 F 03/04/25 16:06 Pulse 71 03/04/25 16:06 Resp 18 03/04/25 16:06 BP 122/82 03/04/25 16:06 Pulse Ox 97 03/04/25 16:06 Oxygen Delivery Method Room Air 03/04/25 16:06 BMI result Body Mass Index 30.5 Tobacco/Smoking Status: Tobacco use Status Tobacco use date assessed 03/04/25 03/04/25 16:15 Patient Tobacco Use Status Never used Tobacco 03/04/25 16:15 e-Cigarette/Vaping Use Never Used 03/04/25 16:15 PHQ-9: PHQ-9 Score PHQ-9: Total score 4 03/04/25 16:15 Depression Screening Interpretation: Negative Thrive Assessment: Date of Thrive Assessment Date Thrive assessed 03/04/25 03/04/25 16:15 Currently or been in a relationship where the following occur: No concerns reported Coding Level of Care Code Est Pt Level 3 (99930) Diagnoses HTN (hypertension) I10 Vitamin D deficiency E55.9 Bilateral hip pain M25.551; M25.552 Chronic SI joint pain M53.3; G89.29 Additional Codes AMBER-7 Assessment Billing - AMBER-7 Assessment Tool: AMBER-7 Assessment 35396 ([id number]) PHQ-9 - 27612 - PHQ-9 Billing: Yes ([id number]) Assessment & Plan Assessment & Plan (1) HTN (hypertension): Code(s): I10 - Essential (primary) hypertension Category: Medical (2) Vitamin D deficiency: Code(s): E55.9 - Vitamin D deficiency, unspecified Category: Medical (3) Bilateral hip pain: Code(s): M25.551 - Pain in right hip; M25.552 - Pain in left hip Category: Medical (4) Chronic SI joint pain: Code(s): M53.3 - Sacrococcygeal disorders, not elsewhere classified; G89.29 - Other chronic pain Category: Medical Plan . Orders: Orders Complete Blood Count Auto Diff Today I10 - Essential (primary) hypertension TSH reflex Free T4 Today I10 - Essential (primary) hypertension Lipid Panel Today I10 - Essential (primary) hypertension Vitamin D 25-OH Total Today E55.9 - Vitamin D deficiency, unspecified, I10 - Essential (primary) hypertension Comprehensive Spencer. Panel Fast Today I10 - Essential (primary) hypertension UA CC w/rflx Micro + Cult Today I10 - Essential (primary) hypertension XR hips FELIPA min 3V Today M25.551 - Pain in right hip, M25.552 - Pain in left hip XR sacroiliac joint min 3V Today G89.29 - Other chronic pain, M53.3 - Sacrococcygeal disorders, not elsewhere classified
--- OUTSIDE RECORDS SUMMARY | 2025-03-04 17:06 | XMS_ITS ---
Author Organization [facility] Address [address] [place] [address] Care Team Providers Care Art Preparator Name Role Phone NÉSTOR SPENCER Primary Care Provider Alfredo Wetzel Jr REASON FOR VISIT pathology Encounters Encounter Location Date Provider Diagnosis [facility] [address] [place] [address] 01/02/2024 Alfredo Cole Jr Plan Of Treatment No Information Progress Notes * NATALIE HARO M.D.:10/02 (78 yo F)Acc No.[id number]:01/02/2024 Patient:?NATALIE HARO :1945???Age:78 Y???Sex:Female Address:[address] [facility] [facility], [place], [address] * true * Date:? Generated for Kassiei brett/Renetta/eTransmitting on:?03/04/2025 05:06 PM EDT
--- OUTSIDE RECORDS SUMMARY | 2025-03-04 17:06 | XMS_ITS ---
Author Organization [facility] Address [address] [place] [address] Care Team Providers Care Company Driver Name Role Phone NÉSTOR SPENCER Primary Care Provider Alfreod Wetzel Jr [phone] REASON FOR VISIT H & P Encounters Encounter Location Date Provider Diagnosis [facility] [address] [place] [address] 12/20/2023 Alfredo Cole Jr Plan Of Treatment No Information Progress Notes * NATALIE HARO M.D.:10/02 (78 yo F)Acc No.[id number]:12/20/2023 Patient:?NATALIE HARO :1945???Age:78 Y???Sex:Female Address:[address] [place] [address] [place], [address] * true * Date:? Generated for Printi brett/Renetta/eTransmitting on:?03/04/2025 05:06 PM EDT
--- OUTSIDE RECORDS SUMMARY | 2025-03-04 17:06 | XMS_ITS ---
Author Organization [facility] Address [address] [place] [address] Care Team Providers Care Machine Lay Out Worker Name Role Phone NÉSTOR SPENCER Primary Care Provider Alfredo Wetzel Jr [phone] REASON FOR VISIT colon screening Encounters Encounter Location Date Provider Diagnosis [facility] [address] [place] [phone] 12/24/2023 Alfredo Cole Jr Encounter for screening colonoscopy Z12.11 ; Personal history of colonic polyps Z86.010 and Colon polyps K63.5 Assessments Encounter Date Diagnosis (ICD Code) Assessment Notes Treatment Notes Treatment Clinical Notes Section Notes 12/24/2023 Encounter for screening colonoscopy (ICD-10 - Z12.11) 12/24/2023 Personal history of colonic polyps (ICD-10 - Z86.010) 12/24/2023 Colon polyps (ICD-10 - K63.5) Plan Of Treatment No Information Progress Notes * NATALIE HARO M.D.:10/02 (79 yo F)Acc No.[id number]:12/24/2023 COLON WITH MAC Patient:?NATALIE HARO M.D Provider:?Alfredo Cole MD :1945???Age:78 Y???Sex:Female D ate:12/24/2023 Address:[address] [place] [address] [id number] Pcp:NÉSTOR SPENCER Subjective: * Chief Complaints: * ???1. Colon screening. * Medical History:? Objective: * Vitals:? Assessment: * Assessment: 1.?Encounter for screening c olonoscopy - Z12.11 (Primary)???2.?Personal history of colonic polyps - Z86.010???3.?Colon polyps - K63.5??? Plan: * Treatment: * Procedure Codes:?G0105 COLOR EC CANCR SCR; COLNSCPY HI RISK, 93044 LESION REMOVAL COLONOSCOPY, 07373 COLONOSCOPY AND BIOPSY, Modifiers: 59 * Preventive Medicine:? ??ZIA Screening:?Colonoscopy?Was interval between colonoscopies three years or more??Yes,?Was last colonoscopy performed three or more years ago??Yes.? * * The named appointment provid er may or may not be the originator of this progress note, and it is not deemed complete until electronically signed by the appointment provider. Sign off status: Pending * Provider:?Alfredo Cole MD Date:?0 12/24/2023 Generated for Jesse west/Renetta/eTwillardsmitting on:?03/04/2025 05:05 PM EDT
--- OUTSIDE RECORDS SUMMARY | 2025-03-04 17:06 | XMS_ITS | Patient Health Record ---
Author Organization [facility] Address [address] [place] [address] Care Team Providers Care Machine Puller And Laster Name Role Phone KARLOSNÉSTOR SINGH Primary Care Provider Alfredo Wetzel Jr Unavailable [phone] Allergies Allergen (clinical drug ingredient) Drug/Non Drug Allergy documented on EMR Reaction Allergy Type Onset Date Status Penicillin Unknown Drug Allergy Active erythromycin Erythromycin Ethylsuccinate Unknown Drug Allergy Active Reason For Referral No Information Medications Medication SIG (Take, Route, Frequency, Duration) Notes Start Date End Date Status Clenpiq 10-3.5-12 MG-GM -GM/160ML 1 ml Orally for 1 days 08/12/2020 Activ e Lexapro 10mg one qd Active Suprep Bowel Prep 1 as directed Orally 1 for 1 dose 05/07/2013 12/02/2024 Active Ativan 0.5mg one qd Active Problems Problem Type SNOMED Code ICD Code Onset Dates Problem Status W/U Status Risk Notes Problem 780000954 Colon cancer screening (Z12.11) Active confirmed Problem 317515708 Personal history of colonic polyps (Z86.010) Active confirmed Plan Of Treatment Future Test Test Name Order Date COLONOSCOPY 05/07/2013 Insurance Providers Payer Name Payer Address Payer Phone Subscriber Number Group Number Insured Name Patient Relationship to Insured Coverage Start Date Coverage End Date [place] [address] [place] [address] [phone] [id number] NATALIE HARO Self - patient is the insured MED[employer] ATT[employer] CLAIMS [address] [place] [address] [phone] [id number] NATALIE HARO Self - patient is the insured Medical (General) History Medical History History ICD Code drug induced Hepatitis (erythromycin eth ylsuccinate) uterine fibroid mild depression osteoporosis Surgical History Surgery Date(Month/Year) Dental extracts Dental implants
== END 2025-03-04 17:00 ==
PROVIDERS: PCP Nurse Practitioner Family; Visit Provider Nurse Practitioner Family
DX: I10 Essential (primary) hypertension (principal); E55.9 Vitamin D deficiency, unspecified; M25.551 Pain in right hip; M25.552 Pain in left hip; M53.3 Sacrococcygeal disorders, not elsewhere classified; G89.29 Other chronic pain

== ENCOUNTER → 2025-03-04 16:04 | Outpatient (BNVA) | payer MEDICARE, SELFPAY | PROVIDERS: PCP Nurse Practitioner Family; Visit Provider Nurse Practitioner Family | DX: I10 Essential (primary) hypertension (principal); E55.9 Vitamin D deficiency, unspecified; M25.551 Pain in right hip; M25.552 Pain in left hip; M53.3 Sacrococcygeal disorders, not elsewhere classified; G89.29 Other chronic pain | CPT/HCPCS: 96127; 99212 ==

== ENCOUNTER 2025-03-16 07:52 | Outpatient (REF) | payer MEDICARE, SELFPAY ==
--- OUTSIDE RECORDS SUMMARY | 2025-03-16 07:56 | XMS_ITS ---
Author Organization [facility] Address [address] [place] [address] Care Team Providers Care Diploma Pharmacy Technician Name Role Phone NÉSTOR SPENCER Primary Care Provider Alfredo Wetzel Jr [phone] REASON FOR VISIT H & P Encounters Encounter Location Date Provider Diagnosis [facility] [address] [place] [phone] 12/20/2023 Alfredo Cole Jr Plan Of Treatment No Information Progress Notes * NATALIE HARO M.D.:10/02 (78 yo F)Acc No.[id number]:12/20/2023 Patient:?NATALIE HARO :1945???Age:78 Y???Sex:Female Address:[address] [place] [address] [place], [address] * true * Date:? Generated for Printi brett/Renetta/eTransmitting on:?03/16/2025 07:56 AM EDT
--- OUTSIDE RECORDS SUMMARY | 2025-03-16 07:56 | XMS_ITS ---
Author Organization [facility] Address [address] [place] [address] Care Team Providers Care Mission Commander Name Role Phone NÉSTOR SPENCER Primary Care Provider Alfredo Wetzel Jr [phone] REASON FOR VISIT colon screening Encounters Encounter Location Date Provider Diagnosis [facility] Out[facility] [address] [place] [phone] 12/24/2023 Alfredo Cole Jr Encounter for screening [...] * NATALIE HARO M.D.:10/02 (79 yo F)Acc No.[id number]:12/24/2023 COLON WITH MAC Patient:?NATALIE HARO M.D Provider:?Alfredo Cole MD :1945???Age:78 Y???Sex:Female D ate:12/24/2023 Address:[address] [place] [address] [id number] Pcp:NÉSTOR SPENCER Subjective: * Chief Complaints: * ???1. Colon screening. * Medical History:? Objective: * Vitals:? Assessment: * Assessment: 1.?Encounter for screening c olonoscopy - Z12.11 (Primary)???2.?Personal history of colonic polyps - Z86.010???3.?Colon polyps - K63.5??? Plan: * Treatment: * Procedure Codes:?G0105 COLOR EC CANCR SCR; COLNSCPY HI RISK, 65031 LESION REMOVAL COLONOSCOPY, 69772 COLONOSCOPY AND BIOPSY, Modifiers: 59 * Preventive [...] MD Date:?0 12/24/2023 Generated for Jesse west/Renetta/eTwillardsmitting on:?03/16/2025 07:56 AM EDT
--- OUTSIDE RECORDS SUMMARY | 2025-03-16 07:56 | XMS_ITS | Patient Health Record ---
Author Organization [facility] Address [address] [place] [address] Care Team Providers Care Chain Maker Hand Name Role Phone KARLOSNÉSTOR SINGH Primary Care Provider Alfredo Wetzel Jr Unavailable Allergies Allergen (clinical drug ingredient) Drug/Non Drug [...] Problem Status W/U Status Risk Notes Problem 372589822 Colon cancer screening (Z12.11) Active confirmed Problem 634826386 Personal history of colonic polyps (Z86.010) Active confirmed Plan Of Treatment Future Test Test Name Order Date COLONOSCOPY 05/07/2013 Insurance Providers Payer Name Payer Address Payer Phone Subscriber Number Group Number Insured Name Patient Relationship to Insured Coverage Start Date Coverage End Date MEDICARE OF [place] [address] [place] [address] [phone] [id number] NATALIE HARO Self - patient is the insured MED[employer] ATTN CLAIMS [address] [place] [address] [id number] NATALIE HARO Self - patient is the insured Medical (General) History Medical History History ICD Code drug induced Hepatitis (erythromycin eth ylsuccinate) uterine fibroid mild depression osteoporosis Surgical History Surgery Date(Month/Year) Dental extracts Dental implants
--- OUTSIDE RECORDS SUMMARY | 2025-03-16 07:56 | XMS_ITS ---
Author Organization [facility] Address [address] [place] [address] Care Team Providers Care Community Chest Officer Name Role Phone NÉSTOR SPENCER Primary Care Provider Alfredo Wetzel Jr [phone] REASON FOR VISIT pathology Encounters Encounter Location Date Provider Diagnosis [facility] [address] [place] [address] 01/02/2024 Alfredo Cole Jr Plan Of Treatment No Information Progress Notes * NATALIE HARO M.D.:10[birth year]02 (78 yo F)Acc No.[id number]:01/02/2024 Patient:?NATALIE HARO :1945???Age:78 Y???Sex:Female Address:[address] [facility], [place], [address] * true * Date:? Generated for Kassiei brett/Renetta/eTransmitting on:?03/16/2025 07:56 AM EDT
[2025-03-16 08:05] LABS: MANUAL DIFF FLAG NO
[2025-03-16 08:16] LABS: Basophils Absolute Auto 0.1 X10*3/uL (0.0-0.2); Basophils Percent Auto 0.8 % (0-2); Eosinophils Absolute Auto 0.2 X10*3/uL (0.0-0.4); Eosinophils Percent Auto 2.7 % (0-4); Hematocrit 39.9 % (37.0-47.0); Hemoglobin 13.3 g/dl (12.0-16.0); Imm Gran Abs Auto 0.02 X10*3/uL (0.00-0.03); Imm Gran Pct Auto 0.3 % (0.0-0.4); Lymphocytes Absolute Auto 1.6 X10*3/uL (1.2-4.9); Lymphocytes Percent Auto 24.8 % (20-40); Mean Corpuscular HGB Conc 33.3 g/dl (31.0-35.0); Mean Corpuscular Hemoglobin 30.1 pg (27.0-33.0); Mean Corpuscular Volume 90.3 fL (80.0-98.0); Mean Platelet Volume 10.3 fL (9.4-12.3); Monocytes Absolute Auto 0.6 X10*3/uL (0.1-1.2); Neutrophils Absolute Auto 3.9 x10*3/uL (2.0-8.3); Neutrophils Percent Auto 61.4 % (45-73); Platelet Count 181 X10*3/uL (160-400); Red Blood Count 4.42 X10*6/uL (4.20-5.50); Red Cell Distribution Width 13.2 % (11.0-16.0); White Blood Count 6.4 X10*3/uL (4.8-10.8)
[2025-03-16 08:46] LABS: Alanine Aminotransferase 19 U/L (0-31); Albumin Level 3.9 g/dL (3.5-5.0); Alkaline Phosphatase 70 U/L (39-117); Anion Gap 6 (12-20); Aspartate Amino Transferase 26 U/L (5-31); Bilirubin Total 0.7 mg/dL (0.0-1.0); Blood Urea Nitrogen 17 mg/dL (9-16); Calcium 9.2 mg/dL (8.4-10.2); Carbon Dioxide 31 mmol/L (22-29); Chloride 108 mmol/L (96-108); Cholesterol 194 mg/dL (<200); Estimated Glomerular Filt Rate > 60; Glucose Fasting 106 mg/dL (60-99); HDL Cholesterol 54 mg/dL (>40); LDL Cholesterol Calculated 119 mg/dL (<100); Potassium 4.3 mmol/L (3.3-5.1); Sodium 141 mmol/L (135-145); Total Protein 6.8 g/dL (6.5-8.0); Triglycerides 106 mg/dL (<150)
[2025-03-16 09:04] LABS: TSH reflex Free T4 1.27 uIU/mL (0.32-4.0); Vitamin D 25-OH Total 25.3 ng/mL (>30)
[2025-03-16 10:56] LABS: Appearance Urine Clear; Color Urine Yellow; Glucose Urine UA Negative (Negative); Leukocyte Esterase Urine Small (1+) (Negative); Nitrite Urine Negative (Negative); PH 7.5 (5.0-9.0); UMIC TRIGGER UACC YES; Urine Blood Negative (Negative); Urine Ketones Negative (Negative); Urine Protein Negative (Neg-Trace)
[2025-03-16 11:04] LABS: Bacteria Urine None Seen (None Seen); Hyaline Casts Urine 0-2 /LPF (0-2); RBC Urine 0-2 /HPF (0-2); Squamous Epithelial Cell Urine 0-2 /HPF (0-2); UACC Culture Trigger YES; WBC Urine 0-5 /HPF (0-5)
== END 2025-03-16 07:53 | disposition home or self-care (01) ==
LOC: HO.LAB 07:52
PROVIDERS: Nurse Practitioner Family; PCP Internal Medicine; Visit Provider Internal Medicine
DX: E55.9 Vitamin D deficiency, unspecified (principal); M81.0 Age-related osteoporosis without current pathological fracture; I10 Essential (primary) hypertension; R82.90 Unspecified abnormal findings in urine
CPT/HCPCS: 36415; 80053; 80061; 81001; 81003; 82306; 84443; 85025; 87086

== ENCOUNTER 2025-08-10 16:04 | Outpatient (AMB) | payer MEDICARE, SELFPAY ==
[2025-08-10 16:08] VITALS: BP 128/68; PULSE 77; RESP 16; TEMP 36.7; O2SAT 96; BMI 30.4
--- NOTE | 2025-08-10 16:08 | A.OFFPC_ITS ---
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 Required: No Accompanied by: Self / Same As Patient Allergies silvia Allergy (Severe, Verified 08/10/25 16:11) DIFF BREATHING - TRACHEAL EDEMA Penicillins (PENICILLINS) Allergy (Intermediate, Verified 08/10/25 16:11) hives/rash bupropion (From Wellbutrin) Adverse Reaction (Intermediate, Verified 08/10/25 16:11) Anxiety erythromycin base (ERYTHROMYCIN BASE) Adverse Reaction (Intermediate, Verified 08/10/25 16:11) DRUG RELATED HEPATITIS Poison [place] Allergy (Unknown, Uncoded 03/04/25 16:09) Unknown Tobacco use date assessed: 08/10/25 Fall risk assessment: No Falls in past year Last assessed Fall Risk: 08/10/25 Dental Screening Dental Screen Date: 08/10/25 Did you have a dental visit in the last 12 months?: Yes Did you have a dental problem in the last 6 months where you did not have access to dental care?: No Was dental information given to patient?: Patient has dentist HPI 5m F/U HPI Details Chief Complaint The patient presents for follow-up management of hypertension, anxiety, and depression. History of Present Illness The patient is a 79-year-old female presenting with hypertension, anxiety, and depression. Her blood pressure has been well-controlled at home, and she denies any symptoms such as chest pain, dyspnea, headache, or blurred vision. Regarding her anxiety, she reports that it has been fair, and she denies any suicidal or homicidal ideation. She is currently taking duloxetine and lorazepam as needed for her anxiety and depression. NOTE: pt started a anti-inflammatory diet . Social History Health Maintenance Review of Systems - Cardiovascular: Denies chest pain, ort hopnea, or syncope. - Respiratory: Denies dyspnea, cough, or wheezing. - Neurological: Denies headache or blurr ed vision. - Psychiatric: Reports fair anxiety, den ies suicidal or homicidal ideation. Physical Exam General: Cooperative, healthy appearing, comfortable, no acute distress and well developed,obese Orientation: Patient oriented x3 Limitations: No limitations Head: Normal to inspection Ears: Hearing grossly normal bilaterally Nose: Normal external nose present Face and sinus: Normal facial exam Eyes: Appearance normal, both eyes and all related structures Neck: Normal visual inspection and Yes full ROM Respiratory: Normal respiratory effort and able to speak in complete sentences. Clear to auscultation bilaterally Cardiovascular: Regular rate and rhythm. Normal S1 and S2, faint systolic murmur GI: Normal to inspection. Soft to palpation and nontender Skin: No rashes or lesions noted Neuro: Patient oriented x3 Extremities: Trace sacral edema bilaterally, otherwise normal to inspection Results Plan Patient was informed and verbally consented to the use of an ambient scribe for clinic note documentation during this visit. 1. Essential Hypertension The patient's blood pressure is well-controlled at home, and she denies any symptoms such as chest pain or dyspnea. Continued monitoring and management of blood pressure are advised. 2. Generalized Anxiety Disorder The patient reports fair control of anxiety symptoms. She is currently on duloxetine and uses lorazepam as needed. Continued monitoring of symptoms and medication adherence is recommended. 3. Major Depressive Disorder The patient is on duloxetine for depression management. She denies any suicidal ideation. Regular follow-up to assess mood and medication effectiveness is suggested. Discussion Notes I discussed with the patient the importance of continuing her current medications for hypertension, anxiety, and depression. We also talked about the need for regular follow-ups to monitor her conditions and adjust treatment as necessary. I advised her to get fasting labs done in the near future to assess her overall health status. Patient Instructions - Continue taking prescribed medications for hypertension, anxiety, and depression. - Schedule regular follow-up appointment s to monitor health conditions. - Get fasting labs done as advised. [facility] Medical History Degenerative disc disease, lumbar Hearing loss Anxiety HTN (hypertension) Major depression, recurrent Systolic murmur Osteoporosis Osteoarthritis Mild depression Uterine fibroid Drug-induced hepatitis Surgical History History of tooth extraction H/O colonoscopy Hx of meniscectomy of right knee Family History Father HTN (hypertension) Coronary artery disease Mother HTN (hypertension) Cardiomyopathy Smoker Depression Other Mental health disorder Social History Housing: House Alcohol intake: current Alcohol intake frequency: holidays/special occasions only Patient Tobacco Use Status: Never used Tobacco e-Cigarette/Vaping Use: Never Used Second Hand Smoke Exposure: Yes (as a child) service: No Current occupational status: other Current occupation: [employer] Cognitive needs: No Hearing needs: No Vision needs: Yes Questionnaire PHQ-9 Over the last 2 weeks, how often have you been bothered by any of the following problems? 1. Little interest or pleasure in doing things: not at all 2. Feeling down, depressed, or hopeless: not at all 3. Trouble falling or staying asleep, or sleeping too much: not at all 4. Feeling tired or having little energy: not at all 5. Poor appetite or overeating: not at all 6. Feeling bad about yourself - or that you are a failure or have let yourself or your family down: not at all 7. Trouble concentrating on things, such as reading the newspaper or watching television: not at all 8. Moving or speaking so slowly that other people could have noticed. Or the opposite - being so fidgety or restless that you have been moving around a lot more than usual: not at all 9. Thoughts that you would be better off or of hurting yourself in some way: not at all Total score: 0 Depression Screening Interpretation: Negative Depression Screening Done: Yes 98890 - PHQ-9 Billing: Yes Source: Developed by Drs. Unruly An, Shannon Merino, Mike Rodriguez and colleagues, with an educational natalia from [email or web address] Thrive Questionnaire Date Thrive assessed: 03/04/25 I am a: Patient What is your living situation today?: I have a steady place to live Within the past 12 months, did the food you bought not last and you didn't have the money to get more?: Never true Within the past 12 months, did you worry whether your food would run out before you got money to buy more?: Never true Do you have trouble paying for medicines?: No Do you have trouble getting transportation to medical appointments?: No Do you have trouble paying your heating and electricity bill?: No Do you have trouble taking care of your child, family member or friend?: No Do you have trouble with day-to-day activities such as bathing, preparing meals, shopping, managing finances, etc.?: No Are you currently unemployed and looking for a job?: No Are you interested in more education?: No Please select the resources that you would like help with: None Currently or been in a relationship where the following occur: No concerns reported THRIVE Score: 0 AMBER-7 AMB Questionnaire AMBER-7 Date AMBER - 7 assessed: 08/10/25 Feeling nervous, anxious, or on edge: 0 = Not at all Not being able to stop or control worryin = Not at all Worrying too much about different things: 0 = Not at all Trouble relaxin = Not at all Being so restless that it is hard to sit still: 0 = Not at all Becoming easily annoyed or irritable: 0 = Not at all Feeling afraid as if something awful might happen: 0 = Not at all Total AMBER-7 score (0-4 normal; 5-9 mild; 10-14 moderate; 15-21 severe): 0 Source: Developed by Drs. Unruly An, Shannon Merino, Mike Rodriguez and colleagues, with an educational natalia from [email or web address] AMBER-7 Assessment Billing AMBER-7 Assessment Tool: AMBER-7 Assessment 90185 Physical exam (Primary Care) Vital Signs: Last Vital Signs Temp 98.1 F 08/10/25 16:08 Pulse 77 08/10/25 16:08 Resp 16 08/10/25 16:08 BP 128/68 08/10/25 16:08 Pulse Ox 96 08/10/25 16:08 Oxygen Delivery Method Room Air 08/10/25 16:08 BMI result Body Mass Index 30.4 Tobacco/Smoking Status: Tobacco use Status Tobacco use date assessed 08/10/25 08/10/25 16:14 Patient Tobacco Use Status Never used Tobacco 08/10/25 16:14 e-Cigarette/Vaping Use Never Used 08/10/25 16:14 PHQ-9: PHQ-9 Score PHQ-9: Total score 0 08/10/25 16:14 Depression Screening Interpretation: Negative Thrive Assessment: Date of Thrive Assessment Date Thrive assessed 03/04/25 08/10/25 16:14 Currently or been in a relationship where the following occur: No concerns reported Coding Level of Care Code Est Pt Level 3 (68467) Diagnoses Anxiety and depression F41.9; F32.9 HTN (hypertension) I10 Vitamin D deficiency E55.9 Additional Codes AMBER-7 Assessment Billing - AMBER-7 Assessment Tool: AMBER-7 Assessment 78849 ([id number]) PHQ-9 - 78027 - PHQ-9 Billing: Yes ([id number]) Assessment & Plan Assessment & Plan (1) Anxiety and depression: Code(s): F41.9 - Anxiety disorder, unspecified; F32.9 - Major depressive disorder, single episode, unspecified Category: Medical (2) HTN (hypertension): Code(s): I10 - Essential (primary) hypertension Category: Medical (3) Vitamin D deficiency: Code(s): E55.9 - Vitamin D deficiency, unspecified Category: Medical Plan . Orders: Orders Comprehensive [place]. Panel Fast Today F32.9 - Major depressive disorder, single episode, unspecified, F41.9 - Anxiety disorder, unspecified, I10 - Essential (primary) hypertension UA CC w/rflx Micro + Cult Today F32.9 - Major depressive disorder, single episode, unspecified, F41.9 - Anxiety disorder, unspecified, I10 - Essential (primary) hypertension Lipid Panel Today F32.9 - Major depressive disorder, single episode, unspecified, F41.9 - Anxiety disorder, unspecified, I10 - Essential (primary) hypertension Vitamin D 25-OH Total Today E55.9 - Vitamin D deficiency, unspecified Complete Blood Count Auto Diff Today F32.9 - Major depressive disorder, single episode, unspecified, F41.9 - Anxiety disorder, unspecified, I10 - Essential ( primary) hypertension TSH reflex Free T4 Today F32.9 - Major depressive disorder, single episode, unspecified, F41.9 - Anxiety disorder, unspecified, I10 - Essential (primary) hypertension
--- OUTSIDE RECORDS SUMMARY | 2025-08-10 18:10 | XMS_ITS | Patient Health Record ---
Author Organization [facility] Address [address] [place] [address] Care Team Providers Care Health Education Assistant Name Role Phone KARLOSNÉSTOR SINGH Primary Care Provider Alfredo Wetzel Jr Unavailable [phone] Allergies Allergen (clinical drug ingredient) Drug/Non Drug [...] Problem Status W/U Status Risk Notes Problem [id number] Colon cancer screening (Z12.11) Active confirmed Problem 699310322 Personal history of colonic polyps (Z86.010) Active confirmed Plan Of Treatment Future Test Test Name Order Date COLONOSCOPY 05/07/2013 Insurance Providers Payer Name Payer Address Payer Phone Subscriber Number Group Number Insured Name Patient Relationship to Insured Coverage Start Date Coverage End Date MEDICARE OF [place] [address] [place] [address] [id number] NATALIE HARO Self - patient is the insured [employer] CLAIMS [address] [place] [address] [id number] NATALIE HARO Self - patient is the insured Medical (General) History Medical History History ICD Code drug induced Hepatitis (erythromycin eth ylsuccinate) uterine fibroid mild depression osteoporosis Surgical History Surgery Date(Month/Year) Dental extracts Dental implants
== END 2025-08-10 17:12 | disposition home or self-care (01) ==
LOC: HO.HMCC 16:04
PROVIDERS: PCP Nurse Practitioner Family; Visit Provider Nurse Practitioner Family
DX: F41.9 Anxiety disorder, unspecified (principal); F32.9 Major depressive disorder, single episode, unspecified; I10 Essential (primary) hypertension; E55.9 Vitamin D deficiency, unspecified

== ENCOUNTER → 2025-08-10 16:04 | Outpatient (BNVA) | payer MEDICARE, SELFPAY | PROVIDERS: PCP Nurse Practitioner Family; Visit Provider Nurse Practitioner Family | DX: I10 Essential (primary) hypertension (principal); F32.A Depression, unspecified; F41.1 Generalized anxiety disorder; E55.9 Vitamin D deficiency, unspecified | CPT/HCPCS: 96127; 99212 ==